=== PATIENT | male | born 1970 | race Caucasian/White ===

== ENCOUNTER 2020-01-19 23:31 | Inpatient (IN) | payer MEDICARE, SELFPAY ==
[2020-01-19 23:32] VITALS: BP 145/89; PULSE 99; RESP 25; TEMP 37.1; O2SAT 89; BMI 33.5
[2020-01-19 23:35] VITALS: BP 145/89; PULSE 97; RESP 22; O2SAT 89; O2SAT 93
--- NOTE | 2020-01-19 23:52 | EKG12_ITS ---
Test Reason : DYSRHYTHMIA Blood Pressure : / mmHG Vent. Rate : 089 BPM Atrial Rate : 089 BPM P-R Int : 148 ms QRS Dur : 080 ms QT Int : 356 ms P-R-T Axes : 014 -11 005 degrees QTc Int : 433 ms Normal sinus rhythm Minimal voltage criteria for LVH, may be normal variant Borderline ECG Confirmed by HARPER HILTON, LUANA ([id number]), website/blog editor OCTAVIA BONNER ([id number]) on 01/27/2020 12:56:37 P M Referred By: MARIANGEL Confirmed By:ROBIN SALEEM MD
[2020-01-19 23:58] LABS: Absolute Lymphocyte Count 0.65 X10^3/uL (0.83-4.51); Absolute Neutrophil Count 7.1 X10^3/uL (2.0-7.7); Basophil# 0.01 X10^3/uL; Basophil% 0.1 % (0-1); Hematocrit 40.2 % (40-54); Hemoglobin 14.2 g/dL (13.0-16.5); Lymphocyte # 0.65 X10^3/ul (4.0); Lymphocyte % 7.9 % (19-41); Mean Corp Hgb Conc 35.3 g/dL (32-36); Mean Platelet Vol. 9.1 fl (6.2-12.0); Monocyte# 0.41 X10^3/uL; NRBC Flagged by Analyzer 0 % (0-5); Neutrophil # 7.11 X10^3/uL (2.7-7.7); Neutrophil % 86.6 % (47-70); Platelet Count 281 K/mm3 (150-450); RBC Distribution Width CV 12.8 % (11.6-14.6); RBC Distribution Width SD 38.2 fl (35.1-43.9); White Blood Count 8.2 K/mm3 (4.4-11.0)
[2020-01-20] VITALS (18 sets, daily range): BP systolic 131–154; BP diastolic 74–97; PULSE 87–97; RESP 16–24; TEMP 37–38.4; O2SAT 88–99; BMI 32.7
--- NOTE | 2020-01-20 00:04 | RAD_ITS ---
STUDY: X-RAY CHEST REASON FOR EXAM: Male, 49 years old. Shortness of breath and cough. Tested for Covid January 18, 2020. TECHNIQUE: AP portable chest. COMPARISON: March 02, 2011. FINDINGS: Subtle bilateral midlung and right basilar opacities. No effusions. No pneumothorax. Normal size heart. Normal mediastinum and joe. Normal visualized pulmonary arteries. Normal visualized aortic arch and descending thoracic aorta. Normal visualized thoracic spine. Normal visualized ribs, clavicles, and shoulders. There is no demonstrated abnormality of the visualized soft tissue structures of the upper abdomen. RAD/Chest 1 View (Portable) IMPRESSION: Possible bilateral pneumonia. Consider correlation with CT chest. Electronically Signed: Lobo Odonnell MD at 0:25 EDT , Service support ,
--- NOTE | 2020-01-20 00:08 | ED.VIS.GEN ---
History of Present Illness Chief Complaint: Shortness of Breath Informant: Patient Narrative: 49-year-old male presenting with shortness of breath. He stated he started feeling ill exactly 7 days ago. He started being short of breath 3 days ago. He states that he was tested at home with his family on Friday but he does not have the results back for COVID?19. He states that now he feels significantly short of breath. On arrival he is hypoxic on room air. Dates he does not have any known medical problems. He is not having chest pain. No history of DVT/PE. Past Medical History - Allergies and Home Meds Allergies/Adverse Reactions: Allergies No Known Allergies Allergy (Verified 01/19/20 23:32) Past Medical History: None Surgical History: noncontributory Lives: With Family Smoking Status: Never smoker Alcohol: None Drugs: None - Family History Maternal Family History: Reports: Heart Disease Review of Systems General: Reports: Chills Eyes: Denies: Visual changes - bilaterally, Diplopia ENT: Denies: Rhinorrhea, Sore throat Cardiovascular: Denies: Chest pain, Palpitations Respiratory: Reports: Dyspnea, Cough, Dyspnea on exertion Gastrointestinal: Denies: Abdominal pain, Nausea, Vomiting, Diarrhea, Melena, Hematochezia Genitourinary: Denies: Dysuria, Hematuria, Frequency Musculoskeletal: Reports: Myalgias Skin: Denies: Rash, Wounds Neurological: Denies: Headache, Weakness, Numbness Physical Exam Vital Signs/Narrative: Vital Signs Temp Pulse Resp BP Pulse Ox 01/20/20 00:00 94 01/19/20 23:35 97 22 H 145/89 H 93 01/19/20 23:32 98.7 F 99 25 H 145/89 H 89 Inital Vital Signs reviewed: Yes General: Well nourished, No Acute Distress Head: Normocephalic, Atraumatic Eyes: Perrl, EOMI ENT: Moist mucous membranes. Negative for: No rhinorrhea, Nasal congestion Cardiovascular: Regular rate, Regular rhythm Respiratory: Decreased Air Movement Abdomen: Soft, Nontender Extremities: Nontender, No edema. Negative for: Calf Tenderness Skin: Normal color, No rash Neurological: Alert, Oriented x3 Psychological: Normal affect, Normal Mood Diagnostic/Tx/Re-eval Clinical Impression(s) from Imaging Studies Chest X-Ray 01/20/20 00:04 IMPRESSION: Possible bilateral pneumonia. Consider correlation with CT chest. Electronically Signed: Lobo Odonnell MD at 0:25 EDT , Service support , Chest CTA 01/20/20 00:54 IMPRESSION: Multifocal bilateral pneumonia to include viral pneumonia. No pulmonary embolus or thoracic aortic dissection. Enlarged right pericardial lymph node. Electronically Signed: Lobo Odonnell MD at 2:28 EDT , Service support , Laboratory Data 01/19/20 01/19/20 01/20/20 23:36 23:36 00:35 WBC 8.2 RBC 4.90 Hgb 14.2 Hct 40.2 MCV 82.0 MCH 29.0 MCHC 35.3 RDW Std Deviation 38.2 RDW Coeff of Doug 12.8 Plt Count 281 MPV 9.1 Immature Gran % (Auto) 0.400 Neut % (Auto) 86.6 H Lymph % (Auto) 7.9 L [place] % (Auto) 5.0 Eos % (Auto) 0.0 Baso % (Auto) 0.1 Absolute Neuts (auto) 7.1 Absolute Lymphs (auto) 0.65 L Nucleated RBC % 0 D-Dimer Quant (PE/DVT) 0.50 H Sodium 134 L Potassium 4.1 Chloride 100 Carbon Dioxide 27.0 Anion Gap 7 BUN 19 H Creatinine 0.89 Estim Creat Clear Calc 93.87 Est GFR (MDRD) Af Amer 117 Est GFR (MDRD) Non-Af 97 BUN/Creatinine Ratio 21.3 H Glucose 133 H Calcium 9.1 Troponin I < 0.015 Procalcitonin COVID-19 (NEFTALY) 01/20/20 01/20/20 00:52 01:32 WBC RBC Hgb Hct MCV MCH MCHC RDW Std Deviation RDW Coeff of Doug Plt Count MPV Immature Gran % (Auto) Neut % (Auto) Lymph % (Auto) [place] % (Auto) Eos % (Auto) Baso % (Auto) Absolute Neuts (auto) Absolute Lymphs (auto) Nucleated RBC % D-Dimer Quant (PE/DVT) Sodium Potassium Chloride Carbon Dioxide Anion Gap BUN Creatinine Estim Creat Clear Calc Est GFR (MDRD) Af Amer Est GFR (MDRD) Non-Af BUN/Creatinine Ratio Glucose Calcium Troponin I Procalcitonin 0.05 COVID-19 (NEFTALY) Detected - Rhythm Strip Rhythm Strip: Sinus Rhythm Rate: 89 - EKG Initial EKG Interpretation: Sinus Rhythm, No Acute Injury Pattern - Medical Decision Making Patient presents with symptoms of COVID?19 and he was tested on Friday but feels significantly short of breath. Ambulatory pulse ox done at the bedside shows that he drops to 84% on room air. He feels significantly short of breath when marching in place. Patient began coughing. Otherwise the patient has stable vital signs. He is alert and awake. EKG is sinus rhythm without signs of ischemia. Patient's chest x-ray shows bilateral pneumonia and his lab work is consistent with a viral pneumonia. D-dimer was elevated so CTA was performed which showed the focal bilateral pneumonia. Patient tested positive for COVID?19 patient's hypoxia he will be admitted to the hospital. Transferred to the floor in stable condition. Impression: 1. COVID?19 pneumonia 2. Hypoxia ED Disposition - Plan for ED Patient: Disposition: Acute Care Hospital [facility]
[2020-01-20 00:13] LABS: Anion Gap 7 (5-15); BUN 19 mg/dL (7-18); BUN/Creat Ratio 21.3 RATIO (10-20); Calcium,Total 9.1 mg/dL (8.5-10.1); Chloride 100 mmol/L (98-107); Creatinine, Serum 0.89 mg/dL (0.70-1.30); EST Glomerular Filtration Rate 97 mL/min (>60); Est Glom Filt Rate - Afr Amer 117 mL/min (>60); Estimated Creatinine Clearance 93.87 ml/min; Glucose 133 mg/dL (74-106); Potassium 4.1 mmol/L (3.5-5.1); Sodium Level 134 mmol/L (136-145)
--- NOTE | 2020-01-20 00:54 | CT_ITS ---
STUDY: CTA CHEST REASON FOR EXAM: Male, 49 years old. Hypoxia, shortness of breath. RADIATION DOSAGE (If Supplied By Facility): CTDIvol = ( 14.95 ) mGy, DLP = ( 506.19 ) mGycm TECHNIQUE: The examination was performed with the intravenous administration of IV 100mL Isovue-370. Post-processing of the angiographic images was performed, with multiplanar reformation and 3D reconstruction. Individualized dose optimization techniques were used for this CT. COMPARISON: Chest x-ray January 20, 2020. FINDINGS: Normal enhancement of the main pulmonary artery and right and left pulmonary arteries. Normal enhancement of the bilateral peripheral pulmonary arteries. There is no demonstrated pulmonary embolism. Normal thoracic aorta and visualized great vessels. There is no demonstrated aortic dissection. Normal heart and pericardium. 2.7 x 2.3 cm soft tissue nodule adjacent to the right heart border suggestive of an enlarged pericardial lymph node, axial image 79.. Normal mediastinum. Normal hilar regions. Normal visualized trachea and bronchi. Focal areas of consolidation posterior aspect of the right upper lobe, posterior aspect of the right middle lobe and lingular segment and posterior aspect of the lower lobes right greater than left. There are groundglass opacities , the majority of which are peripheral in the upper lobes, right middle lobe lingular segment and left lower lobe. No pleural effusions. No pneumothorax. Normal chest wall structures. Mild degenerative changes of the thoracic spine. Normal visualized upper abdomen. CT/CTA Chest W/WO Contrast IMPRESSION: Multifocal bilateral pneumonia to include viral pneumonia. No pulmonary embolus or thoracic aortic dissection. Enlarged right pericardial lymph node. Electronically Signed: Lobo Odonnell MD at 2:28 EDT , Service support ,
[2020-01-20 02:12] LABS: Procalcitonin 0.05 ng/mL (0.00-0.09)
--- NOTE | 2020-01-20 02:54 | HP.PCM_ITS ---
History of Present Illness Date of Admission: 01/20/20 Chief Complaint: Shortness of breath The patient is a 49 year old M with a PMH as below who presents to the hospital with shortness of breath. He started feeling sick about a week ago and his whole family started feeling sick at around the same time and they were tested on Friday for possible COVID, however he does not have any results back. He was started on Plaquenil, Singulair, and prednisone 2 days ago when he was tested for COVID. He started feeling short of breath about 3 days ago and states that the reason why he came into the hospital today was he felt little bit better this morning but then throughout the day began to worsen again. He has had a COVID test obtained here as he is going to be admitted. He was hypoxic on room air down to about 84% and needs about 2 L nasal cannula to maintain his oxygen saturations. Past Medical History Allergies No Known Allergies Allergy (Verified 01/19/20 23:32) Home Medications: Ambulatory Orders Medication Instructions Recorded Hydroxychloroquine [Plaquenil] 400 mg PO DAILY 01/19/20 Montelukast [Singulair] 10 mg PO DAILY 01/19/20 Prednisone 30 mg PO BID 01/19/20 Surgical History: appendectomy Lives: With Family Smoking Status: Never smoker Tobacco Use: Non-smoker Alcohol: None Drugs: None - *Family History Maternal History Items: Heart Disease Review of Systems Constitutional: Reports: Chills, Fever, Fatigue. Denies: Weight Change HEENT: Denies: Head Aches, Sinus Congestion, Sinus Drainage Cardiovascular: Denies: Chest Pain, Palpitations Respiratory: Reports: Cough, Shortness of Breath. Denies: Shortness of breath at rest, Sputum production Gastrointestinal: Denies: Abdominal Pain, Nausea, Vomiting Genitourinary: Denies: Dysuria Musculoskeletal: Denies: Joint Pain, Joint Tenderness Skin: Denies: Rash, Wounds Neurological: Denies: Numbness, Tingling, Focal weakness Psychiatric: Denies: Anxiety, Depression, Homicidal Ideations, Suicidal Ideations Hematologic/ Lymphatic: Denies: Easy Bruising, Easy Bleeding VTE Information - Inpt Only VTE Present on Admission: No - Physical Exam Vitals/I&O's: Vital Signs Temp Pulse Resp BP Pulse Ox 99.6 F H 87 20 H 140/82 H 94 01/20/20 02:16 01/20/20 02:16 01/20/20 02:16 01/20/20 02:16 01/20/20 02:16 Oxygen Flow Rate (L/min) 2 Oxygen Delivery Method Nasal Cannula Weight: 214 lb 4.629 oz Body Mass Index (BMI) 33.5 General: Alert, Oriented x3, Cooperative, No apparent distress HEENT: Atraumatic, PERRLA, EOMI, Normocephalic Oral: Moist Mucosa Neck: Supple, No JVD Lungs: No rhonchi, No wheeze, No rales, Diminished Cardiovascular: Regular rate, Regular Rhythm, Normal S1, Normal S2, No murmurs Abdomen: Soft, Non Tender, Non-Distended, No Hepato-splenomegaly Extremities: No edema, Capillary Refill Less than 3 Seconds Skin: No rashes, No breakdown Neurological: Neuro grossly intact, Sensory exam intact to light touch and pain Psych/Mental Status: Normal Affect, Appropriate Laboratory Results 01/19/20 23:36: WBC 8.2, RBC 4.90, Hgb 14.2, Hct 40.2, MCV 82.0, MCH 29.0, MCHC 35.3, RDW Std Deviation 38.2, RDW Coeff of Doug 12.8, Plt Count 281, MPV 9.1, Immature Gran % (Auto) 0.400, Neut % (Auto) 86.6 H, Lymph % (Auto) 7.9 L, [place] % (Auto) 5.0, Eos % (Auto) 0.0, Baso % (Auto) 0.1, Absolute Neuts (auto) 7.1, Absolute Lymphs (auto) 0.65 L, Nucleated RBC % 0 01/19/20 23:36: Sodium 134 L, Potassium 4.1, Chloride 100, Carbon Dioxide 27.0, Anion Gap 7, BUN 19 H, Creatinine 0.89, Estim Creat Clear Calc 93.87, Est GFR (MDRD) Af Amer 117, Est GFR (MDRD) Non-Af 97, BUN/Creatinine Ratio 21.3 H, Glucose 133 H, Calcium 9.1, Troponin I < 0.015 01/20/20 00:35: D-Dimer Quant (PE/DVT) 0.50 H 01/20/20 00:52: COVID-19 (NEFTALY) Pending 01/20/20 01:32: Procalcitonin 0.05 Assessment/Plan 1. Acute hypoxic respiratory failure secondary to viral pneumonia due to COVID- 19 -COVID test is positive, will admit him to the cohort unit under isolation precautions. He states that he thinks he got COVID from his daughter who had gone to spiritism -We will place him on Decadron, d-dimer was 0.5 and pro calcitonin was normal -No leukocytosis, but he does have neutrophilia and lymphopenia -We will also obtain an ambulatory pulse ox as he will likely need oxygen on discharge DVT: Lovenox Inpatient E&M: [id number] Init Hosp L2
[2020-01-20 03:19] LABS: Probe Check PASS; Specimen Processing Control PASS
[2020-01-20 05:43] LABS: Absolute Lymphocyte Count 1.11 X10^3/uL (0.83-4.51); Absolute Neutrophil Count 6.6 X10^3/uL (2.0-7.7); Basophil# 0.01 X10^3/uL; Basophil% 0.1 % (0-1); Eosinophil# 0.13 X10^3/uL; Eosinophils% 1.6 % (0-5); Hematocrit 40.4 % (40-54); Hemoglobin 13.8 g/dL (13.0-16.5); Lymphocyte # 1.11 X10^3/ul (4.0); Lymphocyte % 13.3 % (19-41); Mean Corp Hgb Conc 34.2 g/dL (32-36); Mean Corpuscular Hgb 28.5 pg (27.0-32.0); Mean Corpuscular Volume 83.3 fL (80-94); Mean Platelet Vol. 8.6 fl (6.2-12.0); Monocyte# 0.46 X10^3/uL; Monocyte% 5.5 % (0-10); NRBC Flagged by Analyzer 0 % (0-5); Neutrophil # 6.61 X10^3/uL (2.7-7.7); POSITIVE MORPHOLOGY YES; Platelet Count 284 K/mm3 (150-450); RBC Distribution Width CV 12.9 % (11.6-14.6); Red Blood Count 4.85 M/mm3 (4.6-6.2); White Blood Count 8.4 K/mm3 (4.4-11.0)
[2020-01-20 05:45] LABS: Differential Indicated SCAN CRITERIA MET
[2020-01-20 06:03] LABS: Anion Gap 7 (5-15); BUN 18 mg/dL (7-18); BUN/Creat Ratio 19.5 RATIO (10-20); Calcium,Total 9.1 mg/dL (8.5-10.1); Chloride 97 mmol/L (98-107); Creatinine, Serum 0.92 mg/dL (0.70-1.30); EST Glomerular Filtration Rate 93 mL/min (>60); Est Glom Filt Rate - Afr Amer 112 mL/min (>60); Estimated Creatinine Clearance 90.81 ml/min; Glucose 109 mg/dL (74-106); Potassium 3.9 mmol/L (3.5-5.1); Sodium Level 134 mmol/L (136-145)
[2020-01-20 06:14] LABS: Differential Comment SCANNED
[2020-01-20] MEDS: dexAMETHasone 4 MG Tablet 6 MG PO (09:16)
[2020-01-20] MEDS: Enoxaparin 40 MG/0.4 ML Syringe SC (09:17)
--- NOTE | 2020-01-20 10:21 | CON.PCM_ITS ---
Problem List (1) COVID-19 Status: Acute Reason for Consult: covid Consulted by: Dr. Espinal History of Present Illness: The patient is a 49 year old M who presented to ED yesterday with one week of aches, feeling hot, loss of taste/smell, diarrhea. Daughter and got sick before he did. Over past 3 days, progressive dry cough and dyspnea. Got tested 2 days ago and was started on prednisone and hydroxychloroquine. Sx worsened, came to ED, sats less than 90. Admitted on O2 and decadron. Feeling about the same today. Taste/smell returning. Family is improving at home. Full ROS performed and neg except as noted above. - Medical History Surgical History: reviewed Allergies/Adverse Reactions: Allergies No Known Allergies Allergy (Verified 01/19/20 23:32) Home Medications: Ambulatory Orders Medication Instructions Recorded Hydroxychloroquine [Plaquenil] 400 mg PO DAILY 01/19/20 Montelukast [Singulair] 10 mg PO DAILY 01/19/20 Prednisone 30 mg PO BID 01/19/20 - Social History Tobacco Use: non-smoker Vital Signs Temp Pulse Resp BP Pulse Ox 100.4 F H 91 16 143/86 H 92 01/20/20 09:20 01/20/20 09:20 01/20/20 09:20 01/20/20 09:20 01/20/20 09:25 Oxygen Flow Rate (L/min) 2 Oxygen Delivery Method Nasal Cannula Weight: 94.801 kg Body Mass Index (BMI) 32.7 Laboratory Tests Past 24 Hrs 01/19/20 01/19/20 01/20/20 23:36 23:36 00:35 WBC 8.2 RBC 4.90 Hgb 14.2 Hct 40.2 MCV 82.0 MCH 29.0 MCHC 35.3 RDW Std Deviation 38.2 RDW Coeff of Doug 12.8 Plt Count 281 MPV 9.1 Immature Gran % (Auto) 0.400 Neut % (Auto) 86.6 H Lymph % (Auto) 7.9 L [place] % (Auto) 5.0 Eos % (Auto) 0.0 Baso % (Auto) 0.1 Absolute Neuts (auto) 7.1 Absolute Lymphs (auto) 0.65 L Nucleated RBC % 0 Differential Comment D-Dimer Quant (PE/DVT) 0.50 H Sodium 134 L Potassium 4.1 Chloride 100 Carbon Dioxide 27.0 Anion Gap 7 BUN 19 H Creatinine 0.89 Estim Creat Clear Calc 93.87 Est GFR (MDRD) Af Amer 117 Est GFR (MDRD) Non-Af 97 BUN/Creatinine Ratio 21.3 H Glucose 133 H Calcium 9.1 Troponin I < 0.015 Procalcitonin COVID-19 (NEFTALY) Blood Type 01/20/20 01/20/20 01/20/20 00:52 01:32 05:30 WBC 8.4 RBC 4.85 Hgb 13.8 Hct 40.4 MCV 83.3 MCH 28.5 MCHC 34.2 RDW Std Deviation 39.0 RDW Coeff of Doug 12.9 Plt Count 284 MPV 8.6 Immature Gran % (Auto) 0.500 Neut % (Auto) 79.0 H Lymph % (Auto) 13.3 L [place] % (Auto) 5.5 Eos % (Auto) 1.6 Baso % (Auto) 0.1 Absolute Neuts (auto) 6.6 Absolute Lymphs (auto) 1.11 Nucleated RBC % 0 Differential Comment SCANNED D-Dimer Quant (PE/DVT) Sodium Potassium Chloride Carbon Dioxide Anion Gap BUN Creatinine Estim Creat Clear Calc Est GFR (MDRD) Af Amer Est GFR (MDRD) Non-Af BUN/Creatinine Ratio Glucose Calcium Troponin I Procalcitonin 0.05 COVID-19 (NEFTALY) Detected Blood Type 01/20/20 01/20/20 05:30 08:45 WBC RBC Hgb Hct MCV MCH MCHC RDW Std Deviation RDW Coeff of Doug Plt Count MPV Immature Gran % (Auto) Neut % (Auto) Lymph % (Auto) [place] % (Auto) Eos % (Auto) Baso % (Auto) Absolute Neuts (auto) Absolute Lymphs (auto) Nucleated RBC % Differential Comment D-Dimer Quant (PE/DVT) Sodium 134 L Potassium 3.9 Chloride 97 L Carbon Dioxide 30.0 Anion Gap 7 BUN 18 Creatinine 0.92 Estim Creat Clear Calc 90.81 Est GFR (MDRD) Af Amer 112 Est GFR (MDRD) Non-Af 93 BUN/Creatinine Ratio 19.5 Glucose 109 H Calcium 9.1 Troponin I Procalcitonin COVID-19 (NEFTALY) Blood Type Pending - Other Studies Radiology: [] reviewed Other Studies: [] Route of nutrition/ use of supplements: [] Nutritional Intake: [] IV Site: [] Williamson Catheter: [] - Physical Exam General: Alert, Oriented x3, Cooperative, No apparent distress HEENT: Atraumatic, PERRLA, EOMI Neck: Supple, No Nodes Lungs: Diminished Cardiovascular: Regular rate, Regular Rhythm, No murmurs Abdomen: Soft, Non Tender, Non-Distended Extremities: No edema Skin: No rashes IV Site: Peripheral, without redness Musculoskeletal: No Tenderness to Palpation of Joints or Extremities Neurological: Cranial nerves II-XII grossly intact - Assessment/Plan Antibiotics: [] Assessment/Plan: [] acute hypoxic resp failure due to covid 19 - on decadron. D-dimer 0.5. No chest pain, no sputum. Fever here to 101.1. PCT 0.05. Counseled him and his re risks and benefits of convalescent plasma and remdesivir, and they consented to the treatments. Thank you, will follow, d/w Dr. Espinal. Patient or caregiver was given a copy of the Remdesivir Fact Sheet for Patients and Parents/Caregivers. The following information was communicated to the patient or caregiver: Remdesivir is not an FDA approved drug. The FDA has authorized the emergency use of Remdesivir. The patient had the option to refuse or accept treatment with Remdesivir. The patient was informed that the number of people treated with Remdesivir is small at this time. The potential benefits and potential risks of Remdesivir are not fully known. Potential benefits of Remdesivir include a shorter time to recovery of COVID-19 infection. Potential risks or side effects of Remdesivir include sweating, shivering, nausea and vomiting or low blood pressure related to a reaction to the medication infusion and increases in liver enzymes. No drugs are approved by the FDA to treat COVID-19 at this time. The patient (or appointed nutrition representative) stated understanding of information communicated and wished to proceed with Remdesivir treatment.
--- NOTE | 2020-01-20 10:41 | NURSING ---
left message for that i would try to call back again early afternoon or before if able.
--- NOTE | 2020-01-20 10:56 | NURSING ---
returned call, updated on pt. assured her we would call if any changes were to occur
[2020-01-20 11:01] LABS: AST(SGOT) 31 U/L (15-37); Alanine Aminotransfer ALT/SGPT 45 U/L (16-61); Albumin, Serum 3.6 g/dL (3.2-5.0); Alkaline Phosphatase 57 U/L (45-117); Bilirubin, Direct 0.31 mg/dL (0.00-0.30); Globulin 4.6 g/dL (2.2-4.2); Protein, Total 8.2 g/dL (6.4-8.2)
--- NOTE | 2020-01-20 15:19 | CASEMGMT ---
RN CM called patient in room for initial transition planning/care coordination assessment. RN CM introduced self and role at [facility]. Patient alert and oriented. Patient willing to participate in assessment and is able to answer all questions appropriately. Care providers, pharmacy, and demographics verified. Patient wishes to discharge home, denies need for home health at this time, will monitor for home oxygen. Patient states he has no further needs or concerns at this time. CM to follow for discharge planning needs that may arise. PCP: Bennett [phone] Specialists: none Preferred Pharmacy: [facility] in [place] Insurance: self pay then submits to [employer] Prescription Benefit: none Living Will/HPOA: yes, Kaykay Azar LNOK: Living Arrangements: Patient lives with in a single story home with 4 steps and railing to enter the home. Patient states he is independent at home and has electricity Transportation: Driving service DME/HHC: Patient denies DME or previous HHC. Disposition Plan: Patient to discharge home with family support and follow-up plans in place. Will monitor for home oxygen. Susanne FRANCO, RN, CM
--- NOTE | 2020-01-20 17:56 | PCM.HOSP.N ---
Hospitalist Note Patient was seen and examined briefly today, he is stable on 2 L of oxygen, he has vigorous coughing but is not bringing up any sputum. I talked to the patient at length, he understands he has a viral pneumonia. Patient does not complain of any chest pain, he had complaints of shortness of breath after he ambulated to the bathroom today. Had infectious diseases see the patient today, they added medications to his regimen.
[2020-01-20] MEDS: Acetaminophen 325 MG Tablet 650 MG PO (21:35)
[2020-01-20] MEDS: MELATONIN 3 MG TABLET PO (21:36)
[2020-01-20] MEDS: 0.9% Saline Lock 10 ML Syringe IV (22:50)
[2020-01-21] VITALS (8 sets, daily range): BP systolic 148–167; BP diastolic 71–90; PULSE 85–92; RESP 16–20; TEMP 36.9–37.7; O2SAT 92–95
[2020-01-21] MEDS: 0.9% Saline Lock 10 ML Syringe IV ×3 (01:21→21:15)
[2020-01-21] MEDS: Acetaminophen 325 MG Tablet 650 MG PO (05:16)
[2020-01-21 05:34] LABS: Hematocrit 37.8 % (40-54); Hemoglobin 13.1 g/dL (13.0-16.5); Mean Corp Hgb Conc 34.7 g/dL (32-36); Mean Corpuscular Hgb 29.4 pg (27.0-32.0); Mean Corpuscular Volume 84.8 fL (80-94); Mean Platelet Vol. 8.8 fl (6.2-12.0); Platelet Count 325 K/mm3 (150-450); RBC Distribution Width SD 40.3 fl (35.1-43.9); Red Blood Count 4.46 M/mm3 (4.6-6.2); White Blood Count 8.8 K/mm3 (4.4-11.0)
[2020-01-21 05:49] LABS: ALB/GLOB Ratio 0.8 RATIO (0.9-2.4); AST(SGOT) 35 U/L (15-37); Alanine Aminotransfer ALT/SGPT 47 U/L (16-61); Albumin, Serum 3.4 g/dL (3.2-5.0); Alkaline Phosphatase 59 U/L (45-117); Anion Gap 7 (5-15); BUN 23 mg/dL (7-18); BUN/Creat Ratio 25.8 RATIO (10-20); Calcium,Total 9.1 mg/dL (8.5-10.1); Chloride 98 mmol/L (98-107); Creatinine, Serum 0.89 mg/dL (0.70-1.30); EST Glomerular Filtration Rate 96 mL/min (>60); Est Glom Filt Rate - Afr Amer 117 mL/min (>60); Estimated Creatinine Clearance 93.87 ml/min; Globulin 4.5 g/dL (2.2-4.2); Glucose 97 mg/dL (74-106); Potassium 3.9 mmol/L (3.5-5.1); Protein, Total 7.9 g/dL (6.4-8.2); Sodium Level 134 mmol/L (136-145)
[2020-01-21] MEDS: dexAMETHasone 4 MG Tablet 6 MG PO (11:07)
--- NOTE | 2020-01-21 12:52 | CASEMGMT ---
MICHAEL QUESADA NOTE: Pt may need oxygen at discharge. Call placed to pt at this time. He is aware he may need O2 @ home and denies having any preference of DME company. He states he has CHM coverage but does not know if it covers for Oxygen. He was made aware approx cost of oxygen for one month through [employer] is approx $158. Pt states this is affordable for him. Pt states he does have electricity @ home as well. Green sheet placed on chart w/instructions on Home oxygen set up if pt qualifies for O2 @ discharge. Rosangela VASQUEZN MICHAEL CM
--- NOTE | 2020-01-21 14:02 | PCM.PN.ID ---
Patient Problems: Active and Suspected Problems COVID-19 (Acute) Subjective: Still with cough, dyspnea, no fever. No n/v/d. - Physical Exam Vitals/I&O's: Vital Signs Temp Pulse Resp BP Pulse Ox 98.4 F 91 18 149/88 H 95 01/21/20 11:00 01/21/20 11:00 01/21/20 11:00 01/21/20 11:00 01/21/20 11:00 Oxygen Flow Rate (L/min) 2 Oxygen Delivery Method Nasal Cannula Weight: 94.801 kg Body Mass Index (BMI) 32.7 Intake and Output for Last 24 Hours 01/19/20 01/20/20 01/21/20 23:59 23:59 23:59 Intake Total 250 / 250 1850 / 1850 Output Total 250 / 250 875 / 875 Balance 0 / 0 975 / 975 General: Alert, Cooperative Lungs: Diminished Cardiovascular: Regular rate, Regular Rhythm Abdomen: Soft, Non Tender, Non-Distended Skin: No rashes Laboratory Results 01/21/20 05:25: WBC 8.8, RBC 4.46 L, Hgb 13.1, Hct 37.8 L, MCV 84.8, MCH 29.4, MCHC 34.7, RDW Std Deviation 40.3, RDW Coeff of Doug 13.0, Plt Count 325, MPV 8.8 01/21/20 05:25: Sodium 134 L, Potassium 3.9, Chloride 98, Carbon Dioxide 29.0, Anion Gap 7, BUN 23 H, Creatinine 0.89, Estim Creat Clear Calc 93.87, Est GFR (MDRD) Af Amer 117, Est GFR (MDRD) Non-Af 96, BUN/Creatinine Ratio 25.8 H, Glucose 97, Calcium 9.1, Total Bilirubin 0.90, AST 35, ALT 47, Alkaline Phosphatase 59, Total Protein 7.9, Albumin 3.4, Globulin 4.5 H, Albumin/Globulin Ratio 0.8 L Current Medications Acetaminophen (Tylenol) 650 mg PO Q6H PRN PRN PRN Reason: Pain Score 1-10/Temp > 100.7 F Last Admin: 01/21/20 05:16 Dose: 650 mg Documented by: Dexamethasone (Decadron) 6 mg PO DAILY@0800 PRETTY Last Admin: 01/21/20 11:07 Dose: 6 mg Documented by: Enoxaparin Sodium (Lovenox) 40 mg SC DAILY [facility] Last Admin: 01/20/20 09:17 Dose: 40 mg Documented by: Sodium Chloride () 250 mls @ 15 mls/hr IV .[id number] PRN PRN Reason: Saline Flush Sodium Chloride () 250 mls @ 15 mls/hr IV .[id number] PRN PRN Reason: Additional IVPB Infusion Remdesivir (Investigational) (100 mg/ Sodium Chloride) 250 mls @ 125 mls/hr IV DAILY [facility]; Protocol Stop: 01/24/20 11:59 Sodium Chloride () 250 mls @ 15 mls/hr IV .[id number] PRN PRN Reason: Saline Flush Sodium Chloride () 250 mls @ 15 mls/hr IV .[id number] PRN PRN Reason: Additional IVPB Infusion Melatonin (Melatonin) 3 mg PO QHS PRN PRN PRN Reason: INSOMNIA Last Admin: 01/20/20 21:36 Dose: 3 mg Documented by: Ondansetron HCl (Zofran) 4 mg IV Q8H PRN PRN PRN Reason: NAUSEA/VOMITING Sodium Chloride () 10 - 40 ml IV UD PRN PRN Reason: SALINE FLUSH Last Admin: 01/21/20 11:07 Dose: 10 ml Documented by: Medical Necessity - Tobacco Use Smoking Status: Never smoker Tobacco Use: Non-smoker Route of nutrition/ use of supplements: [] Nutritional Intake: [] IV Site: [] Williamson Catheter: [] - Assessment/Plan Antibiotics: [] Assessment/Plan: [] acute hypoxic resp failure due to covid 19 - on decadron for 10 day course. D-dimer 0.5. No chest pain, no sputum. No further fever, cont 5 day course of remdesivir. If able to be discharged prior to completing course, ok to stop remdesivir and decadron early. Will follow
[2020-01-21] MEDS: Enoxaparin 40 MG/0.4 ML Syringe SC (17:22)
--- NOTE | 2020-01-21 18:09 | PCM.PROGNOTE ---
Patient Problems: Active and Suspected Problems COVID-19 (Acute) Subjective: Patient was seen and examined today, he is still requiring 2 L of oxygen most of the time to maintain his pulse ox, at rest the patient appears comfortable but the patient states that when he uses the restroom and walks to the restroom he becomes short of breath. Patient is still coughing, he is receiving Remdesivir from infectious diseases. - Physical Exam Vitals/I&O's: Vital Signs Temp Pulse Resp BP Pulse Ox 98.4 F 91 18 149/88 H 95 01/21/20 11:00 01/21/20 11:00 01/21/20 11:00 01/21/20 11:00 01/21/20 11:00 Oxygen Flow Rate (L/min) 2 Oxygen Delivery Method Nasal Cannula Weight: 94.801 kg Body Mass Index (BMI) 32.7 Intake and Output for Last 24 Hours 01/19/20 01/20/20 01/21/20 23:59 23:59 23:59 Intake Total 250 / 250 2100 / 2100 Output Total 250 / 250 875 / 875 Balance 0 / 0 1225 / 1225 General: Alert, Oriented x3, Cooperative, No apparent distress, Well developed HEENT: Atraumatic, PERRLA, EOMI, Normocephalic Oral: Moist Mucosa Neck: Supple, No JVD, Trachea Midline, Thyroid Normal Size and Texture Lungs: Clear to auscultation, Normal air movement, No rhonchi, No wheeze, No rales Cardiovascular: Regular rate, Regular Rhythm, Normal S1, Normal S2, No murmurs, PMI Normal, No rub noted, No Gallop Abdomen: Bowel Sounds Present, Soft, Non Tender, Non-Distended Extremities: No clubbing, No cyanosis, No edema, Capillary Refill Less than 3 Seconds Skin: No rashes, No breakdown Musculoskeletal: No Tenderness to Palpation of Joints or Extremities Neurological: Cranial nerves II-XII grossly intact, Neuro grossly intact, Sensory exam intact to light touch and pain, Coordination normal Psych/Mental Status: Normal Affect, Appropriate, Alert and oriented to time, place, person, mood and affect Laboratory Results 01/21/20 05:25: WBC 8.8, RBC 4.46 L, Hgb 13.1, Hct 37.8 L, MCV 84.8, MCH 29.4, MCHC 34.7, RDW Std Deviation 40.3, RDW Coeff of Doug 13.0, Plt Count 325, MPV 8.8 01/21/20 05:25: Sodium 134 L, Potassium 3.9, Chloride 98, Carbon Dioxide 29.0, Anion Gap 7, BUN 23 H, Creatinine 0.89, Estim Creat Clear Calc 93.87, Est GFR (MDRD) Af Amer 117, Est GFR (MDRD) Non-Af 96, BUN/Creatinine Ratio 25.8 H, Glucose 97, Calcium 9.1, Total Bilirubin 0.90, AST 35, ALT 47, Alkaline Phosphatase 59, Total Protein 7.9, Albumin 3.4, Globulin 4.5 H, Albumin/Globulin Ratio 0.8 L Current Medications Acetaminophen (Tylenol) 650 mg PO Q6H PRN PRN PRN Reason: Pain Score 1-10/Temp > 100.7 F Last Admin: 01/21/20 05:16 Dose: 650 mg Documented by: Dexamethasone (Decadron) 6 mg PO DAILY@0800 [facility] Last Admin: 01/21/20 11:07 Dose: 6 mg Documented by: Enoxaparin Sodium (Lovenox) 40 mg SC BID [facility] Last Admin: 01/21/20 17:22 Dose: 40 mg Documented by: Sodium Chloride () 250 mls @ 15 mls/hr IV .[id number] PRN PRN Reason: Saline Flush Sodium Chloride () 250 mls @ 15 mls/hr IV .[id number] PRN PRN Reason: Additional IVPB Infusion Remdesivir (Investigational) (100 mg/ Sodium Chloride) 250 mls @ 125 mls/hr IV DAILY [facility]; Protocol Stop: 01/24/20 11:59 Last Infusion: 01/21/20 16:53 Dose: Infused Documented by: Sodium Chloride () 250 mls @ 15 mls/hr IV .[id number] PRN PRN Reason: Saline Flush Sodium Chloride () 250 mls @ 15 mls/hr IV .[id number] PRN PRN Reason: Additional IVPB Infusion Melatonin (Melatonin) 3 mg PO QHS PRN PRN PRN Reason: INSOMNIA Last Admin: 01/20/20 21:36 Dose: 3 mg Documented by: Ondansetron HCl (Zofran) 4 mg IV Q8H PRN PRN PRN Reason: NAUSEA/VOMITING Sodium Chloride () 10 - 40 ml IV UD PRN PRN Reason: SALINE FLUSH Last Admin: 01/21/20 11:07 Dose: 10 ml Documented by: Medical Necessity - Tobacco Use Smoking Status: Never smoker Tobacco Use: Non-smoker Assessment/Plan All Active Problems COVID-19 (Acute) #1 acute COVID-19 infection with pneumonia-continue treatment per infectious diseases, patient remains medically stable at this time #2 hypoxia secondary to #1-try to wean oxygen as tolerated Inpatient E&M: 35969 Subs Hosp L2
[2020-01-22 02:15] VITALS: BP 148/91; PULSE 81; RESP 16; TEMP 37.1; O2SAT 94
[2020-01-22 05:24] LABS: Hematocrit 38.7 % (40-54); Hemoglobin 13.2 g/dL (13.0-16.5); Mean Corp Hgb Conc 34.1 g/dL (32-36); Mean Corpuscular Hgb 28.6 pg (27.0-32.0); Mean Corpuscular Volume 83.9 fL (80-94); Mean Platelet Vol. 8.7 fl (6.2-12.0); Platelet Count 384 K/mm3 (150-450); RBC Distribution Width CV 13.2 % (11.6-14.6); RBC Distribution Width SD 40.4 fl (35.1-43.9); Red Blood Count 4.61 M/mm3 (4.6-6.2); White Blood Count 8.8 K/mm3 (4.4-11.0)
[2020-01-22 05:43] LABS: ALB/GLOB Ratio 0.7 RATIO (0.9-2.4); AST(SGOT) 32 U/L (15-37); Alanine Aminotransfer ALT/SGPT 50 U/L (16-61); Albumin, Serum 3.2 g/dL (3.2-5.0); Alkaline Phosphatase 59 U/L (45-117); Anion Gap 6 (5-15); BUN 25 mg/dL (7-18); BUN/Creat Ratio 36.6 RATIO (10-20); Calcium,Total 9.2 mg/dL (8.5-10.1); Chloride 100 mmol/L (98-107); Creatinine, Serum 0.68 mg/dL (0.70-1.30); EST Glomerular Filtration Rate 131 mL/min (>60); Est Glom Filt Rate - Afr Amer 159 mL/min (>60); Estimated Creatinine Clearance 122.86 ml/min; Globulin 4.7 g/dL (2.2-4.2); Glucose 108 mg/dL (74-106); Potassium 4.1 mmol/L (3.5-5.1); Protein, Total 7.9 g/dL (6.4-8.2); Sodium Level 134 mmol/L (136-145)
[2020-01-22] MEDS: Acetaminophen 325 MG Tablet 650 MG PO (06:20)
[2020-01-22 07:00] VITALS: O2SAT 94
[2020-01-22 07:38] VITALS: BP 130/89; PULSE 81; RESP 18; TEMP 37.2; O2SAT 94
[2020-01-22] MEDS: dexAMETHasone 4 MG Tablet 6 MG PO (10:32)
[2020-01-22] MEDS: Enoxaparin 40 MG/0.4 ML Syringe SC ×2 (10:32→21:00)
[2020-01-22] MEDS: 0.9% Saline Lock 10 ML Syringe IV (10:33)
--- NOTE | 2020-01-22 12:07 | PN_ITS ---
Patient Problems: Active and Suspected Problems COVID-19 (Acute) Subjective: Patient was seen and examined today, I talked with him as well as his by phone today, he is requiring more oxygen at this time but is resting comfortably, he asked about something for postnasal drainage and I had Robitussin-DM added onto his meds. Patient does not complain of any chest pain or severe dyspnea today. - Physical Exam Vitals/I&O's: Vital Signs Temp Pulse Resp BP Pulse Ox 98.9 F 81 18 130/89 H 94 01/22/20 07:38 01/22/20 07:38 01/22/20 07:38 01/22/20 07:38 01/22/20 07:38 Oxygen Flow Rate (L/min) 4 Oxygen Delivery Method Nasal Cannula Weight: 94.801 kg Body Mass Index (BMI) 32.7 Intake and Output for Last 24 Hours 01/20/20 01/21/20 01/22/20 23:59 23:59 23:59 Intake Total 250 / 250 3450 / 3450 Output Total 250 / 250 1825 / 1825 550 / 550 Balance 0 / 0 1625 / 1625 -550 / -550 General: Alert, Oriented x3, Cooperative, No apparent distress, Well developed, Well nourished HEENT: Atraumatic, PERRLA, EOMI, Normocephalic Oral: Moist Mucosa Neck: Supple, Trachea Midline, Thyroid Normal Size and Texture Lungs: Clear to auscultation, Normal air movement, No rhonchi, No wheeze, No rales Cardiovascular: Regular rate, Regular Rhythm, Normal S1, Normal S2, No murmurs, PMI Normal, No rub noted, No Gallop Abdomen: Bowel Sounds Present, Soft, Non Tender, Non-Distended Extremities: No clubbing, No cyanosis, No edema, Capillary Refill Less than 3 Seconds Skin: No rashes, No breakdown Musculoskeletal: No Tenderness to Palpation of Joints or Extremities Neurological: Cranial nerves II-XII grossly intact, Neuro grossly intact, Sensory exam intact to light touch and pain, Coordination normal Psych/Mental Status: Normal Affect, Appropriate, Alert and oriented to time, place, person, mood and affect Laboratory Results 01/22/20 05:15: WBC 8.8, RBC 4.61, Hgb 13.2, Hct 38.7 L, MCV 83.9, MCH 28.6, MCHC 34.1, RDW Std Deviation 40.4, RDW Coeff of Doug 13.2, Plt Count 384, MPV 8.7 01/22/20 05:15: Sodium 134 L, Potassium 4.1, Chloride 100, Carbon Dioxide 28.0, Anion Gap 6, BUN 25 H, Creatinine 0.68 L, Estim Creat Clear Calc 122.86, Est GFR (MDRD) Af Amer 159, Est GFR (MDRD) Non-Af 131, BUN/Creatinine Ratio 36.6 H, Glucose 108 H, Calcium 9.2, Total Bilirubin 0.80, AST 32, ALT 50, Alkaline Phosphatase 59, Total Protein 7.9, Albumin 3.2, Globulin 4.7 H, Albumin/Globulin Ratio 0.7 L Current Medications Acetaminophen (Tylenol) 650 mg PO Q6H PRN PRN PRN Reason: Pain Score 1-10/Temp > 100.7 F Last Admin: 01/22/20 06:20 Dose: 650 mg Documented by: Dexamethasone (Decadron) 6 mg PO DAILY@0800 [facility] Last Admin: 01/22/20 10:32 Dose: 6 mg Documented by: Enoxaparin Sodium (Lovenox) 40 mg SC BID [facility] Last Admin: 01/22/20 10:32 Dose: 40 mg Documented by: Sodium Chloride () 250 mls @ 15 mls/hr IV .[id number] PRN PRN Reason: Saline Flush Sodium Chloride () 250 mls @ 15 mls/hr IV .[id number] PRN PRN Reason: Additional IVPB Infusion Remdesivir (Investigational) (100 mg/ Sodium Chloride) 250 mls @ 125 mls/hr IV DAILY [facility]; Protocol Stop: 01/24/20 11:59 Last Admin: 01/22/20 10:32 Dose: 125 mls/hr Documented by: Sodium Chloride () 250 mls @ 15 mls/hr IV .[id number] PRN PRN Reason: Saline Flush Sodium Chloride () 250 mls @ 15 mls/hr IV .[id number] PRN PRN Reason: Additional IVPB Infusion Melatonin (Melatonin) 3 mg PO QHS PRN PRN PRN Reason: INSOMNIA Last Admin: 01/20/20 21:36 Dose: 3 mg Documented by: Ondansetron HCl (Zofran) 4 mg IV Q8H PRN PRN PRN Reason: NAUSEA/VOMITING Sodium Chloride () 10 - 40 ml IV UD PRN PRN Reason: SALINE FLUSH Last Admin: 01/22/20 10:33 Dose: 10 ml Documented by: Medical Necessity - Tobacco Use Smoking Status: Never smoker Tobacco Use: Non-smoker Assessment/Plan All Active Problems COVID-19 (Acute) #1 acute COVID-19 infection with pneumonia-continue treatment per infectious diseases, patient remains medically stable at this time #2 hypoxia secondary to #1-try to wean oxygen as tolerated, patient is now on 4 L #3 postnasal drainage-probably secondary to oxygen [id number] was added to his formulary Inpatient E&M: 00607 Subs Hosp L2
[2020-01-22] MEDS: guaiFENesin Dm 10 ML UDC PO ×3 (13:25→22:51)
[2020-01-22 13:28] VITALS: BP 129/89; PULSE 82; RESP 18; TEMP 36.9; O2SAT 93
[2020-01-22 16:23] VITALS: BP 149/79; PULSE 83; RESP 18; TEMP 36.8; O2SAT 93
[2020-01-22] MEDS: MELATONIN 3 MG TABLET PO (20:56)
[2020-01-22 21:00] VITALS: BP 150/93; PULSE 87; RESP 22; TEMP 36.7; O2SAT 95
[2020-01-23] VITALS (9 sets, daily range): BP systolic 125–153; BP diastolic 78–94; PULSE 72–88; RESP 16–20; TEMP 36.7–36.9; O2SAT 94–97
[2020-01-23] MEDS: guaiFENesin Dm 10 ML UDC PO ×4 (04:31→22:01)
[2020-01-23] MEDS: 0.9% Saline Lock 10 ML Syringe IV ×2 (04:49→22:04)
[2020-01-23 05:36] LABS: Hematocrit 40.3 % (40-54); Hemoglobin 13.8 g/dL (13.0-16.5); Mean Corp Hgb Conc 34.2 g/dL (32-36); Mean Corpuscular Hgb 28.8 pg (27.0-32.0); Platelet Count 509 K/mm3 (150-450); RBC Distribution Width CV 13.2 % (11.6-14.6); RBC Distribution Width SD 40.4 fl (35.1-43.9); White Blood Count 7.3 K/mm3 (4.4-11.0)
[2020-01-23 05:52] LABS: ALB/GLOB Ratio 0.7 RATIO (0.9-2.4); AST(SGOT) 28 U/L (15-37); Alanine Aminotransfer ALT/SGPT 50 U/L (16-61); Albumin, Serum 3.2 g/dL (3.2-5.0); Alkaline Phosphatase 61 U/L (45-117); Anion Gap 6 (5-15); BUN 22 mg/dL (7-18); BUN/Creat Ratio 32.4 RATIO (10-20); Calcium,Total 9.2 mg/dL (8.5-10.1); Chloride 100 mmol/L (98-107); Creatinine, Serum 0.68 mg/dL (0.70-1.30); EST Glomerular Filtration Rate 132 mL/min (>60); Est Glom Filt Rate - Afr Amer 160 mL/min (>60); Estimated Creatinine Clearance 122.86 ml/min; Globulin 4.8 g/dL (2.2-4.2); Glucose 104 mg/dL (74-106); Potassium 4.1 mmol/L (3.5-5.1); Sodium Level 132 mmol/L (136-145)
[2020-01-23] MEDS: dexAMETHasone 4 MG Tablet 6 MG PO (09:36)
[2020-01-23] MEDS: Enoxaparin 40 MG/0.4 ML Syringe SC ×2 (09:36→22:01)
--- NOTE | 2020-01-23 12:39 | PCM.PROGNOTE ---
Patient Problems: Active and Suspected Problems COVID-19 (Acute) Subjective: Patient was seen and examined today, he is currently still on 4 L of oxygen via nasal cannula, patient still appears to be weak, he is going to try to get up in a chair more today and see how he can tolerate it. He is willing to go home on supplemental oxygen if he needs it, his last dose of Remdisivir is tomorrow. Patient denies any chest pain or fever or chills. - Physical Exam Vitals/I&O's: Vital Signs Temp Pulse Resp BP Pulse Ox 98.1 F 88 18 146/88 H 94 01/23/20 09:36 01/23/20 09:36 01/23/20 09:36 01/23/20 09:36 01/23/20 09:36 Oxygen Flow Rate (L/min) 4 Oxygen Delivery Method Nasal Cannula Weight: 94.801 kg Body Mass Index (BMI) 32.7 Intake and Output for Last 24 Hours 01/21/20 01/22/20 01/23/20 23:59 23:59 23:59 Intake Total 3450 / 3450 1200 / 1200 650 / 650 Output Total 1825 / 1825 1850 / 1850 1325 / 1325 Balance 1625 / 1625 -650 / -650 -675 / -675 General: Alert, Oriented x3, Cooperative, No apparent distress, Well developed, Well nourished HEENT: Atraumatic, PERRLA, EOMI, Normocephalic Oral: Moist Mucosa Neck: Supple, Trachea Midline, Thyroid Normal Size and Texture Lungs: Clear to auscultation, Normal air movement, No rhonchi, No wheeze, No rales Cardiovascular: Regular rate, Regular Rhythm, Normal S1, Normal S2, No murmurs, PMI Normal, No rub noted, No Gallop Abdomen: Bowel Sounds Present, Soft, Non Tender, Non-Distended Extremities: No edema, Capillary Refill Less than 3 Seconds Skin: No rashes, No breakdown Musculoskeletal: No Tenderness to Palpation of Joints or Extremities Neurological: Cranial nerves II-XII grossly intact, Neuro grossly intact, Sensory exam intact to light touch and pain, Coordination normal Psych/Mental Status: Normal Affect, Appropriate, Alert and oriented to time, place, person, mood and affect Laboratory Results 01/23/20 04:45: WBC 7.3, RBC 4.80, Hgb 13.8, Hct 40.3, MCV 84.0, MCH 28.8, MCHC 34.2, RDW Std Deviation 40.4, RDW Coeff of Doug 13.2, Plt Count 509 H, MPV 9.0 01/23/20 04:45: Sodium 132 L, Potassium 4.1, Chloride 100, Carbon Dioxide 26.0, Anion Gap 6, BUN 22 H, Creatinine 0.68 L, Estim Creat Clear Calc 122.86, Est GFR (MDRD) Af Amer 160, Est GFR (MDRD) Non-Af 132, BUN/Creatinine Ratio 32.4 H, Glucose 104, Calcium 9.2, Total Bilirubin 0.90, AST 28, ALT 50, Alkaline Phosphatase 61, Total Protein 8.0, Albumin 3.2, Globulin 4.8 H, Albumin/Globulin Ratio 0.7 L Current Medications Acetaminophen (Tylenol) 650 mg PO Q6H PRN PRN PRN Reason: Pain Score 1-10/Temp > 100.7 F Last Admin: 01/22/20 06:20 Dose: 650 mg Documented by: Dexamethasone (Decadron) 6 mg PO DAILY@0800 [facility] Last Admin: 01/23/20 09:36 Dose: 6 mg Documented by: Enoxaparin Sodium (Lovenox) 40 mg SC BID [facility] Last Admin: 01/23/20 09:36 Dose: 40 mg Documented by: Guaifenesin (Robitussin Dm) 10 ml PO Q4H PRN PRN PRN Reason: COUGH/SINUS DRNG Last Admin: 01/23/20 10:31 Dose: 10 ml Documented by: Sodium Chloride () 250 mls @ 15 mls/hr IV .[id number] PRN PRN Reason: Saline Flush Sodium Chloride () 250 mls @ 15 mls/hr IV .[id number] PRN PRN Reason: Additional IVPB Infusion Remdesivir (Investigational) (100 mg/ Sodium Chloride) 250 mls @ 125 mls/hr IV DAILY [facility]; Protocol Stop: 01/24/20 11:59 Last Admin: 01/23/20 10:30 Dose: 125 mls/hr Documented by: Sodium Chloride () 250 mls @ 15 mls/hr IV .[id number] PRN PRN Reason: Saline Flush Sodium Chloride () 250 mls @ 15 mls/hr IV .[id number] PRN PRN Reason: Additional IVPB Infusion Melatonin (Melatonin) 3 mg PO QHS PRN PRN PRN Reason: INSOMNIA Last Admin: 01/22/20 20:56 Dose: 3 mg Documented by: Ondansetron HCl (Zofran) 4 mg IV Q8H PRN PRN PRN Reason: NAUSEA/VOMITING Sodium Chloride () 10 - 40 ml IV UD PRN PRN Reason: SALINE FLUSH Last Admin: 01/23/20 04:49 Dose: 10 ml Documented by: Medical Necessity - Tobacco Use Smoking Status: Never smoker Tobacco Use: Non-smoker Assessment/Plan All Active Problems COVID-19 (Acute) #1 acute COVID-19 infection with pneumonia-continue treatment per infectious diseases, patient remains medically stable at this time, patient finishes his course of Remdisivir tomorrow #2 hypoxia secondary to #1-try to wean oxygen as tolerated, patient is now on 4 L #3 postnasal drainage-probably secondary to oxygen administration Inpatient E&M: 05871 Subs Hosp L2
[2020-01-23] MEDS: MELATONIN 3 MG TABLET PO (22:01)
[2020-01-24] VITALS (12 sets, daily range): BP systolic 116–148; BP diastolic 82–93; PULSE 72–88; RESP 18–24; TEMP 36.1–37.4; O2SAT 92–98
[2020-01-24 04:39] LABS: Hematocrit 40.9 % (40-54); Mean Corp Hgb Conc 34.2 g/dL (32-36); Mean Corpuscular Hgb 28.5 pg (27.0-32.0); Mean Corpuscular Volume 83.3 fL (80-94); Mean Platelet Vol. 8.6 fl (6.2-12.0); Platelet Count 582 K/mm3 (150-450); RBC Distribution Width CV 13.1 % (11.6-14.6); RBC Distribution Width SD 39.8 fl (35.1-43.9); Red Blood Count 4.91 M/mm3 (4.6-6.2)
[2020-01-24 04:54] LABS: ALB/GLOB Ratio 0.7 RATIO (0.9-2.4); AST(SGOT) 25 U/L (15-37); Alanine Aminotransfer ALT/SGPT 57 U/L (16-61); Albumin, Serum 3.2 g/dL (3.2-5.0); Alkaline Phosphatase 60 U/L (45-117); Anion Gap 6 (5-15); BUN 25 mg/dL (7-18); BUN/Creat Ratio 32.9 RATIO (10-20); Calcium,Total 9.3 mg/dL (8.5-10.1); Chloride 101 mmol/L (98-107); Creatinine, Serum 0.76 mg/dL (0.70-1.30); EST Glomerular Filtration Rate 116 mL/min (>60); Est Glom Filt Rate - Afr Amer 140 mL/min (>60); Estimated Creatinine Clearance 109.93 ml/min; Globulin 4.7 g/dL (2.2-4.2); Glucose 101 mg/dL (74-106); Potassium 3.9 mmol/L (3.5-5.1); Protein, Total 7.9 g/dL (6.4-8.2); Sodium Level 133 mmol/L (136-145)
[2020-01-24] MEDS: guaiFENesin Dm 10 ML UDC PO (06:06)
--- NOTE | 2020-01-24 08:47 | PN_ITS ---
Patient Problems: Active and Suspected Problems COVID-19 (Acute) Subjective: Patient was seen and examined today, he still complains of significant weakness when getting up to ambulate. Patient is now on 3 L nasal cannula oxygen. He gets his last dose of Remdisivir today. Patient is still having cough. Objective: General: Alert, Oriented x3, Cooperative, No apparent distress, Well developed, Well nourished HEENT: Atraumatic, PERRLA, EOMI, Normocephalic Oral: Moist Mucosa Neck: Supple, Trachea Midline, Thyroid Normal Size and Texture Lungs: Clear to auscultation, Normal air movement, No rhonchi, No wheeze, No rales Cardiovascular: Regular rate, Regular Rhythm, Normal S1, Normal S2, No murmurs, PMI Normal, No rub noted, No Gallop Abdomen: Bowel Sounds Present, Soft, Non Tender, Non-Distended Extremities: No edema, Capillary Refill Less than 3 Seconds Skin: No rashes, No breakdown Musculoskeletal: No Tenderness to Palpation of Joints or Extremities Neurological: Cranial nerves II-XII grossly intact, Neuro grossly intact, Sensory exam intact to light touch and pain, Coordination normal Psych/Mental Status: Normal Affect, Appropriate, Alert and oriented to time, place, person, mood and affect - Physical Exam Vitals/I&O's: Vital Signs Temp Pulse Resp BP Pulse Ox 98.0 F 72 18 123/84 H 95 01/24/20 04:23 01/24/20 06:54 01/24/20 04:23 01/24/20 04:23 01/24/20 06:54 Oxygen Flow Rate (L/min) 3 Oxygen Delivery Method Nasal Cannula Weight: 94.801 kg Body Mass Index (BMI) 32.7 Intake and Output for Last 24 Hours 01/22/20 01/23/20 01/24/20 23:59 23:59 23:59 Intake Total 1200 / 1200 1400 / 1400 800 / 800 Output Total 1850 / 1850 2825 / 2825 200 / 200 Balance -650 / -650 -1425 / -1425 600 / 600 Laboratory Results 01/24/20 04:25: WBC 7.0, RBC 4.91, Hgb 14.0, Hct 40.9, MCV 83.3, MCH 28.5, MCHC 34.2, RDW Std Deviation 39.8, RDW Coeff of Doug 13.1, Plt Count 582 H, MPV 8.6 01/24/20 04:25: Sodium 133 L, Potassium 3.9, Chloride 101, Carbon Dioxide 26.0, Anion Gap 6, BUN 25 H, Creatinine 0.76, Estim Creat Clear Calc 109.93, Est GFR (MDRD) Af Amer 140, Est GFR (MDRD) Non-Af 116, BUN/Creatinine Ratio 32.9 H, Glucose 101, Calcium 9.3, Total Bilirubin 0.90, AST 25, ALT 57, Alkaline Phosphatase 60, Total Protein 7.9, Albumin 3.2, Globulin 4.7 H, Albumin/Globulin Ratio 0.7 L Current Medications Acetaminophen (Tylenol) 650 mg PO Q6H PRN PRN PRN Reason: Pain Score 1-10/Temp > 100.7 F Last Admin: 01/22/20 06:20 Dose: 650 mg Documented by: Dexamethasone (Decadron) 6 mg PO DAILY@0800 [facility] Last Admin: 01/23/20 09:36 Dose: 6 mg Documented by: Enoxaparin Sodium (Lovenox) 40 mg SC BID [facility] Last Admin: 01/23/20 22:01 Dose: 40 mg Documented by: Guaifenesin (Robitussin Dm) 10 ml PO Q4H PRN PRN PRN Reason: COUGH/SINUS DRNG Last Admin: 01/24/20 06:06 Dose: 10 ml Documented by: Sodium Chloride () 250 mls @ 15 mls/hr IV .[id number] PRN PRN Reason: Saline Flush Sodium Chloride () 250 mls @ 15 mls/hr IV .[id number] PRN PRN Reason: Additional IVPB Infusion Remdesivir (Investigational) (100 mg/ Sodium Chloride) 250 mls @ 125 mls/hr IV DAILY [facility]; Protocol Stop: 01/24/20 11:59 Last Infusion: 01/23/20 12:30 Dose: Infused Documented by: Sodium Chloride () 250 mls @ 15 mls/hr IV .[id number] PRN PRN Reason: Saline Flush Sodium Chloride () 250 mls @ 15 mls/hr IV .[id number] PRN PRN Reason: Additional IVPB Infusion Melatonin (Melatonin) 3 mg PO QHS PRN PRN PRN Reason: INSOMNIA Last Admin: 01/23/20 22:01 Dose: 3 mg Documented by: Ondansetron HCl (Zofran) 4 mg IV Q8H PRN PRN PRN Reason: NAUSEA/VOMITING Sodium Chloride () 10 - 40 ml IV UD PRN PRN Reason: SALINE FLUSH Last Admin: 01/23/20 22:04 Dose: 10 ml Documented by: Medical Necessity - Tobacco Use Smoking Status: Never smoker Tobacco Use: Non-smoker Assessment/Plan All Active Problems COVID-19 (Acute) #1 acute COVID-19 infection with pneumonia-continue treatment per infectious diseases, patient remains medically stable at this time, patient finishes his course of Remdisivir today. #2 hypoxia secondary to #1-try to wean oxygen as tolerated, patient is now on 3 L #3 postnasal drainage-probably secondary to oxygen administration Inpatient E&M: 35529 Subs Hosp L2
[2020-01-24] MEDS: dexAMETHasone 4 MG Tablet 6 MG PO (09:07)
[2020-01-24] MEDS: Enoxaparin 40 MG/0.4 ML Syringe SC ×2 (09:07→20:13)
[2020-01-24] MEDS: 0.9% Saline Lock 10 ML Syringe IV (09:08)
--- NOTE | 2020-01-24 14:16 | PN.ID_ITS ---
Patient Problems: Active and Suspected Problems COVID-19 (Acute) Subjective: Feeling better, no fever, no n/v/d. Cough improved. - Physical Exam Vitals/I&O's: Vital Signs Temp Pulse Resp BP Pulse Ox 97.9 F 82 24 H 128/85 H 94 01/24/20 12:00 01/24/20 12:00 01/24/20 12:00 01/24/20 12:00 01/24/20 12:00 Oxygen Flow Rate (L/min) 4 Oxygen Delivery Method Nasal Cannula Weight: 94.801 kg Body Mass Index (BMI) 32.7 Intake and Output for Last 24 Hours 01/22/20 01/23/20 01/24/20 23:59 23:59 23:59 Intake Total 1200 / 1200 1400 / 1400 1750 / 1750 Output Total 1850 / 1850 2825 / 2825 650 / 650 Balance -650 / -650 -1425 / -1425 1100 / 1100 General: Alert, Cooperative, No apparent distress Lungs: Diminished Cardiovascular: Regular rate, Regular Rhythm Abdomen: Soft, Non Tender, Non-Distended Skin: No rashes Laboratory Results 01/24/20 04:25: WBC 7.0, RBC 4.91, Hgb 14.0, Hct 40.9, MCV 83.3, MCH 28.5, MCHC 34.2, RDW Std Deviation 39.8, RDW Coeff of Doug 13.1, Plt Count 582 H, MPV 8.6 01/24/20 04:25: Sodium 133 L, Potassium 3.9, Chloride 101, Carbon Dioxide 26.0, Anion Gap 6, BUN 25 H, Creatinine 0.76, Estim Creat Clear Calc 109.93, Est GFR (MDRD) Af Amer 140, Est GFR (MDRD) Non-Af 116, BUN/Creatinine Ratio 32.9 H, Glucose 101, Calcium 9.3, Total Bilirubin 0.90, AST 25, ALT 57, Alkaline Phosphatase 60, Total Protein 7.9, Albumin 3.2, Globulin 4.7 H, Albumin/Globulin Ratio 0.7 L Current Medications Acetaminophen (Tylenol) 650 mg PO Q6H PRN PRN PRN Reason: Pain Score 1-10/Temp > 100.7 F Last Admin: 01/22/20 06:20 Dose: 650 mg Documented by: Dexamethasone (Decadron) 6 mg PO DAILY@0800 [facility] Last Admin: 01/24/20 09:07 Dose: 6 mg Documented by: Enoxaparin Sodium (Lovenox) 40 mg SC BID [facility] Last Admin: 01/24/20 09:07 Dose: 40 mg Documented by: Guaifenesin (Robitussin Dm) 10 ml PO Q4H PRN PRN PRN Reason: COUGH/SINUS DRNG Last Admin: 01/24/20 06:06 Dose: 10 ml Documented by: Sodium Chloride () 250 mls @ 15 mls/hr IV .[id number] PRN PRN Reason: Saline Flush Sodium Chloride () 250 mls @ 15 mls/hr IV .[id number] PRN PRN Reason: Additional IVPB Infusion Sodium Chloride () 250 mls @ 15 mls/hr IV .[id number] PRN PRN Reason: Saline Flush Sodium Chloride () 250 mls @ 15 mls/hr IV .[id number] PRN PRN Reason: Additional IVPB Infusion Melatonin (Melatonin) 3 mg PO QHS PRN PRN PRN Reason: INSOMNIA Last Admin: 01/23/20 22:01 Dose: 3 mg Documented by: Ondansetron HCl (Zofran) 4 mg IV Q8H PRN PRN PRN Reason: NAUSEA/VOMITING Sodium Chloride () 10 - 40 ml IV UD PRN PRN Reason: SALINE FLUSH Last Admin: 01/24/20 09:08 Dose: 10 ml Documented by: Medical Necessity - Tobacco Use Smoking Status: Never smoker Tobacco Use: Non-smoker Route of nutrition/ use of supplements: [] Nutritional Intake: [] IV Site: [] Williamson Catheter: [] - Assessment/Plan Antibiotics: [] Assessment/Plan: [] acute hypoxic resp failure due to covid 19 - on decadron for 10 day course. D- dimer 0.5. No chest pain, no sputum. No further fever, completing 5 day course of remdesivir. Slowly improving. Will follow
[2020-01-25] VITALS (13 sets, daily range): BP systolic 113–150; BP diastolic 79–87; PULSE 72–104; RESP 16–26; TEMP 36.3–37.2; O2SAT 86–98
[2020-01-25 04:33] LABS: Hematocrit 40.6 % (40-54); Hemoglobin 13.9 g/dL (13.0-16.5); Mean Corp Hgb Conc 34.2 g/dL (32-36); Mean Corpuscular Hgb 28.7 pg (27.0-32.0); Mean Corpuscular Volume 83.7 fL (80-94); Mean Platelet Vol. 8.5 fl (6.2-12.0); Platelet Count 621 K/mm3 (150-450); RBC Distribution Width CV 13.2 % (11.6-14.6); RBC Distribution Width SD 39.8 fl (35.1-43.9); Red Blood Count 4.85 M/mm3 (4.6-6.2); White Blood Count 7.2 K/mm3 (4.4-11.0)
[2020-01-25 04:48] LABS: ALB/GLOB Ratio 0.7 RATIO (0.9-2.4); AST(SGOT) 17 U/L (15-37); Alanine Aminotransfer ALT/SGPT 46 U/L (16-61); Albumin, Serum 3.2 g/dL (3.2-5.0); Alkaline Phosphatase 60 U/L (45-117); Anion Gap 7 (5-15); BUN 23 mg/dL (7-18); BUN/Creat Ratio 30.8 RATIO (10-20); Calcium,Total 8.8 mg/dL (8.5-10.1); Chloride 101 mmol/L (98-107); Creatinine, Serum 0.75 mg/dL (0.70-1.30); EST Glomerular Filtration Rate 118 mL/min (>60); Est Glom Filt Rate - Afr Amer 143 mL/min (>60); Estimated Creatinine Clearance 111.39 ml/min; Globulin 4.5 g/dL (2.2-4.2); Glucose 108 mg/dL (74-106); Potassium 3.9 mmol/L (3.5-5.1); Protein, Total 7.7 g/dL (6.4-8.2); Sodium Level 134 mmol/L (136-145)
[2020-01-25] MEDS: dexAMETHasone 4 MG Tablet 6 MG PO (08:10)
--- NOTE | 2020-01-25 08:19 | RAD_ITS ---
STUDY: X-RAY CHEST REASON FOR EXAM: Male, 49 years old. COVID +, PT HAS FELT BAD FOR 13 DAYS, STARTING TO FEEL BETTER TECHNIQUE: Single AP portable view of the chest. COMPARISON: Comparison is made with prior study dated 01/20/2020. FINDINGS: At this time, there is progressive infiltrate in the left lower lobe and left midlung. Stable mild increased markings at the right lung base. There is no demonstrated pleural abnormality. Normal size heart. Normal mediastinum and joe. Normal visualized pulmonary arteries. Normal visualized aortic arch and descending thoracic aorta. Normal visualized thoracic spine. Normal visualized ribs, clavicles, and shoulders. There is no demonstrated abnormality of the visualized soft tissue structures of the upper abdomen. RAD/Chest 1 View (Portable) IMPRESSION: Progressive infiltrate in the left lower lobe and left midlung. Stable increased markings at the right lung base. Electronically Signed: Rufus Hoffman, at 10:18 EDT , Service support ,
--- NOTE | 2020-01-25 10:36 | CASEMGMT ---
RN CM Note: participated in ICU interdisciplinary rounds. Patient continues to desat O2 on ambulation. No discharge planned for today. Will need home oxygen testing day of dc for O2 needs at rest and with ambulation. Per physician, if tolerates 5-6L NC on ambulation, will be able to dc. -DC PLAN: home with self pay oxygen through [employer]. William VASQUEZN RN ACM
--- NOTE | 2020-01-25 16:09 | PCM.PROGNOTE ---
Patient Problems: Active and Suspected Problems COVID-19 (Acute) Subjective: Patient was seen and examined today, he still requiring nasal cannula oxygen to maintain his O2 sat. Patient continues to complain of generalized weakness, he denies any chills fever or increasing shortness of breath. Objective: General: Alert, Oriented x3, Cooperative, No apparent distress, Well developed, Well nourished HEENT: Atraumatic, PERRLA, EOMI, Normocephalic Oral: Moist Mucosa Neck: Supple, Trachea Midline, Thyroid Normal Size and Texture Lungs: Clear to auscultation, Normal air movement, No rhonchi, No wheeze, No rales Cardiovascular: Regular rate, Regular Rhythm, Normal S1, Normal S2, No murmurs, PMI Normal, No rub noted, No Gallop Abdomen: Bowel Sounds Present, Soft, Non Tender, Non-Distended Extremities: No edema, Capillary Refill Less than 3 Seconds Skin: No rashes, No breakdown Musculoskeletal: No Tenderness to Palpation of Joints or Extremities Neurological: Cranial nerves II-XII grossly intact, Neuro grossly intact, Sensory exam intact to light touch and pain, Coordination normal Psych/Mental Status: Normal Affect, Appropriate, Alert and oriented to time, place, person, mood and affect - Physical Exam Vitals/I&O's: Vital Signs Temp Pulse Resp BP Pulse Ox 97.8 F 88 24 H 135/85 H 97 01/25/20 15:30 01/25/20 15:30 01/25/20 15:30 01/25/20 15:30 01/25/20 15:30 Oxygen Flow Rate (L/min) 4 Oxygen Delivery Method Nasal Cannula Weight: 94.801 kg Body Mass Index (BMI) 32.7 Intake and Output for Last 24 Hours 01/23/20 01/24/20 01/25/20 23:59 23:59 23:59 Intake Total 1400 / 1400 2860 / 3180 1200 / 1200 Output Total 2825 / 2825 1525 / 1975 1175 / 1175 Balance -1425 / -1425 1335 / 1205 Laboratory Results 01/25/20 03:50: WBC 7.2, RBC 4.85, Hgb 13.9, Hct 40.6, MCV 83.7, MCH 28.7, MCHC 34.2, RDW Std Deviation 39.8, RDW Coeff of Doug 13.2, Plt Count 621 H, MPV 8.5 01/25/20 03:50: Sodium 134 L, Potassium 3.9, Chloride 101, Carbon Dioxide 26.0, Anion Gap 7, BUN 23 H, Creatinine 0.75, Estim Creat Clear Calc 111.39, Est GFR (MDRD) Af Amer 143, Est GFR (MDRD) Non-Af 118, BUN/Creatinine Ratio 30.8 H, Glucose 108 H, Calcium 8.8, Total Bilirubin 0.80, AST 17, ALT 46, Alkaline Phosphatase 60, Total Protein 7.7, Albumin 3.2, Globulin 4.5 H, Albumin/Globulin Ratio 0.7 L Current Medications Acetaminophen (Tylenol) 650 mg PO Q6H PRN PRN PRN Reason: Pain Score 1-10/Temp > 100.7 F Last Admin: 01/22/20 06:20 Dose: 650 mg Documented by: Albuterol Sulfate (Ventolin Aerosols) 2.5 mg INHALATION Q6HWA.RT [facility] Dexamethasone (Decadron) 6 mg PO DAILY@0800 [facility] Last Admin: 01/25/20 08:10 Dose: 6 mg Documented by: Enoxaparin Sodium (Lovenox) 40 mg SC BID [facility] Last Admin: 01/25/20 15:00 Dose: Not Given Documented by: Guaifenesin (Robitussin Dm) 10 ml PO Q4H PRN PRN PRN Reason: COUGH/SINUS DRNG Last Admin: 01/24/20 06:06 Dose: 10 ml Documented by: Sodium Chloride () 250 mls @ 15 mls/hr IV .[id number] PRN PRN Reason: Saline Flush Sodium Chloride () 250 mls @ 15 mls/hr IV .[id number] PRN PRN Reason: Additional IVPB Infusion Sodium Chloride () 250 mls @ 15 mls/hr IV .[id number] PRN PRN Reason: Saline Flush Sodium Chloride () 250 mls @ 15 mls/hr IV .[id number] PRN PRN Reason: Additional IVPB Infusion Melatonin (Melatonin) 3 mg PO QHS PRN PRN PRN Reason: INSOMNIA Last Admin: 01/23/20 22:01 Dose: 3 mg Documented by: Ondansetron HCl (Zofran) 4 mg IV Q8H PRN PRN PRN Reason: NAUSEA/VOMITING Sodium Chloride () 10 - 40 ml IV UD PRN PRN Reason: SALINE FLUSH Last Admin: 01/24/20 09:08 Dose: 10 ml Documented by: Medical Necessity - Tobacco Use Smoking Status: Never smoker Tobacco Use: Non-smoker Assessment/Plan All Active Problems COVID-19 (Acute) #1 acute COVID-19 infection with pneumonia-continue treatment per infectious diseases, patient remains medically stable at this time, I will add aerosol treatments of the patient's medical regimen to see if this helps with the hypoxia, he is being seen by physical therapy, chest x-ray today showed progressive infiltrate in the left lower lobe and left midlung as compared with the prior study on 01/20/2020. Although these infiltrates look different from his previous chest x-ray, I am not overly worried about these infiltrates. #2 hypoxia secondary to #1-try to wean oxygen as tolerated, patient is now on 3 L #3 postnasal drainage-probably secondary to oxygen administration Inpatient E&M: 58752 [facility] Hosp L2
[2020-01-25] MEDS: Albuterol 2.5 MG/3 ML VIAL.NEB. INHALATION (18:57)
[2020-01-25] MEDS: Enoxaparin 40 MG/0.4 ML Syringe SC (21:20)
[2020-01-26] VITALS (9 sets, daily range): BP systolic 114–129; BP diastolic 77–89; PULSE 69–96; RESP 14–28; TEMP 36.3–37.1; O2SAT 87–96
[2020-01-26] MEDS: Albuterol 2.5 MG/3 ML VIAL.NEB. INHALATION ×2 (06:53→13:15)
[2020-01-26] MEDS: Enoxaparin 40 MG/0.4 ML Syringe SC (09:19)
[2020-01-26] MEDS: dexAMETHasone 4 MG Tablet 6 MG PO (09:19)
[2020-01-26] MEDS: 0.9% Saline Lock 10 ML Syringe IV (09:19)
--- NOTE | 2020-01-26 12:49 | PN.ID_ITS ---
Patient Problems: Active and Suspected Problems COVID-19 (Acute) Subjective: Feeling much better, home today planned, no fever, still some cough. - Physical Exam Vitals/I&O's: Vital Signs Temp Pulse Resp BP Pulse Ox 98.7 F 89 18 114/89 H 93 01/26/20 09:20 01/26/20 09:20 01/26/20 09:20 01/26/20 09:20 01/26/20 09:20 Oxygen Flow Rate (L/min) 1 Oxygen Delivery Method Nasal Cannula Weight: 94.801 kg Body Mass Index (BMI) 32.7 Intake and Output for Last 24 Hours 01/24/20 01/25/20 01/26/20 23:59 23:59 23:59 Intake Total 2860 / 3180 1740 / 1740 Output Total 1524 / 1974 625 / 625 Balance 1335 / 1205 -285 / -285 -625 / -625 General: Alert, Cooperative, No apparent distress Lungs: Clear to auscultation, Normal air movement, Diminished Cardiovascular: Regular rate, Regular Rhythm Abdomen: Soft, Non Tender, Non-Distended Skin: No rashes Current Medications Acetaminophen (Tylenol) 650 mg PO Q6H PRN PRN PRN Reason: Pain Score 1-10/Temp > 100.7 F Last Admin: 01/22/20 06:20 Dose: 650 mg Documented by: Albuterol Sulfate (Ventolin Aerosols) 2.5 mg INHALATION Q6HWA.RT [facility] Last Admin: 01/26/20 06:53 Dose: 2.5 mg Documented by: Dexamethasone (Decadron) 6 mg PO DAILY@0800 [facility] Last Admin: 01/26/20 09:19 Dose: 6 mg Documented by: Enoxaparin Sodium (Lovenox) 40 mg SC BID [facility] Last Admin: 01/26/20 09:19 Dose: 40 mg Documented by: Guaifenesin (Robitussin Dm) 10 ml PO Q4H PRN PRN PRN Reason: COUGH/SINUS DRNG Last Admin: 01/24/20 06:06 Dose: 10 ml Documented by: Sodium Chloride () 250 mls @ 15 mls/hr IV .[id number] PRN PRN Reason: Saline Flush Sodium Chloride () 250 mls @ 15 mls/hr IV .[id number] PRN PRN Reason: Additional IVPB Infusion Sodium Chloride () 250 mls @ 15 mls/hr IV .[id number] PRN PRN Reason: Saline Flush Sodium Chloride () 250 mls @ 15 mls/hr IV .[id number] PRN PRN Reason: Additional IVPB Infusion Melatonin (Melatonin) 3 mg PO QHS PRN PRN PRN Reason: INSOMNIA Last Admin: 01/23/20 22:01 Dose: 3 mg Documented by: Ondansetron HCl (Zofran) 4 mg IV Q8H PRN PRN PRN Reason: NAUSEA/VOMITING Sodium Chloride () 10 - 40 ml IV UD PRN PRN Reason: SALINE FLUSH Last Admin: 01/26/20 09:19 Dose: 10 ml Documented by: Medical Necessity - Tobacco Use Smoking Status: Never smoker Tobacco Use: Non-smoker Route of nutrition/ use of supplements: [] Nutritional Intake: [] IV Site: [] Williamson Catheter: [] - Assessment/Plan Antibiotics: [] Assessment/Plan: [] acute hypoxic resp failure due to covid 19 - on decadron for 10 day course. D- dimer 0.5. No chest pain, no sputum. No further fever, completed 5 day course of remdesivir. Much improved, home today. Day 14 since symptoms started, so no need for further quarantine. Family at home has all recovered. Will follow as needed
--- NOTE | 2020-01-26 13:36 | CASEMGMT ---
RN CM updated that patient qualifies for home oxygen at discharge. RN CM received script for home oxygen. Referral sent to [facility], patient preferred DME, and arranged for delivery to patient's room prior to discharge.
--- NOTE | 2020-01-26 15:31 | PCM.DC ---
- Discharge Diagnoses Current Active Problems: Current Active and Chronic Problems COVID-19 (Acute) You will use the following diet at home:: No restrictions Your food should be the consistency of: Regular Your liquids should be the consistency of: Regular/Thin Discharge Activity: Return to Normal Activity Weight Bearing Status: Full weight bearing Additional Instructions: USE 2 LITERS OF OXYGEN WHEN AMBULATING Allergies/Adverse Reactions: Allergies No Known Allergies Allergy (Verified 01/19/20 23:32) Medications to take at Discharge Albuterol IH (ProAir) [Proair Hfa (SP)Vent Pts] 2 puff INHALATION UD #1 inhaler 01/26/20 Guaifenesin Dm [Robitussin Dm] 10 ml PO Q4H PRN PRN udc 01/26/20 The following prescriptions were given: Albuterol IH (ProAir) [Proair Hfa (SP)Vent Pts] 2 puff INHALATION UD #1 inhaler Transmission Status: Pending to [facility] Primary Care Physician: Joselin Saenz MD [Primary Care Provider] - Please follow up with your Primary Care Physician in: [place] 7-10 DAYS Test Results: Test results from this visit will be discussed in further detail at your follow-up appointment, if applicable.
--- NOTE | 2020-01-26 18:57 | DS.PCM_ITS ---
Discharge Date and Diagnosis Date of Admission: 01/20/20 Date of Discharge: 01/26/20 - Primary Discharge Diagnosis Acute Problems: 1 acute COVID-19 infection with pneumonia from COVID-19 #2 hypoxia secondary to #1 Hospital Course and Treatment Operations: None Procedures: None Summary of Care Provided: The patient is a 49 year old M was seen in the emergency room at [facility] with chief complaint of shortness of breath, Annette patient complained of generalized malaise starting 7 days prior to being seen in the emergency room, he complained of shortness of breath starting 3 days before he was seen in the emergency room. Patient was tested at home with his family for COVID-19 but these results were not available yet. Patient underwent COVID testing in the emergency room, this was positive, chest x-ray was obtained which showed subtle bilateral midlung and right basilar opacities. Patient's d-dimer was elevated and a CTA was performed which showed focal bilateral pneumonia. Patient was hypoxic on room air and was placed on supplemental oxygen. Patient's O2 sat on room air in the emergency room was 84% at times. Patient was admitted to [facility] on [facility] 2 ICU, he was seen in consultation by infectious diseases, he was placed on Decadron and Remdisivir. Patient underwent a protracted course in the hospital and required supplemental oxygen- never above 4 L however. The day before his eventual discharge, patient was placed on aerosol treatments which seem to help the patient's oxygenation. On 01/26/2020, patient was seen and examined: On examination he appeared in good health and spirits. Vital signs as documented. Skin warm and dry and without overt rashes. Neck without JVD, neck was supple, trachea midline, thyroid was normal. Lungs clear bilaterally, normal air movement was noted. Heart exam notable for regular rhythm, normal sounds and absence of murmurs, rubs or gallops. Abdomen unremarkable and without evidence of organomegaly, masses, or abdominal aortic enlargement. Bowel sounds are present, abdomen is not distended. Extremities nonedematous, no cyanosis was noted, no clubbing was noted. Neuro: Cranial nerves II through XII are grossly intact, no focal motor deficits were noted, sensation to light touch and pinprick intact, motor exam 5/5 throughout. Psych: Patient is alert and oriented x3, he does not appear anxious or depressed, he does not appear agitated. On 01/26/2020, patient was seen and examined and felt to be stable for discharge home. Patient required a prescription for supplemental oxygen due to the fact his O2 sat on room air ambulating was 87%, he ambulated with 2 L of oxygen and his O2 sat was 92%. At rest, the patient's O2 sat was 94% on room air. Patient was set up for oxygen at 2 L/min while ambulating, he was expected to use this oxygen in his home and outside of his home on ambulation. - Physical Exam Vitals/I&O's: Vital Signs Temp Pulse Resp BP Pulse Ox 98.6 F 92 17 125/80 H 94 01/26/20 15:30 01/26/20 15:30 01/26/20 15:30 01/26/20 15:30 01/26/20 15:30 Oxygen Flow Rate (L/min) [ 2 AMBULATION with Oxygen] Oxygen Flow Rate (L/min) 1 Oxygen Delivery Method Nasal Cannula Weight: 94.801 kg Body Mass Index (BMI) 32.7 Intake and Output for Last 24 Hours 01/24/20 01/25/20 01/26/20 23:59 23:59 23:59 Intake Total 2860 / 3180 1740 / 1740 Output Total 1525 / 1975 2024 625 / 625 Balance 1335 / 1205 -285 / -285 -625 / -625 Discharge Activity: Return to Normal Activity Weight Bearing Status: Full weight bearing Home Medications: Medications to take at Discharge Albuterol IH (ProAir) [Proair Hfa (SP)Vent Pts] 2 puff INHALATION UD #1 inhaler 01/26/20 Guaifenesin Dm [Robitussin Dm] 10 ml PO Q4H PRN PRN udc 01/26/20 Following Prescriptions Were Given to Patient: Albuterol IH (ProAir) [Proair Hfa (SP)Vent Pts] 2 puff INHALATION UD #1 inhaler Transmission Status: Received by [facility] Primary Care Physician: Joselin Saenz MD [Primary Care Provider] - Please follow up with your Primary Care Physician in: [place] 7-10 DAYS Disposition: Home Minutes spent on discharge:: 32 Patient Condition:: Stable Medical Necessity - Tobacco Use Smoking Status: Never smoker Tobacco Use: Non-smoker Meaningful Use Info Meaningful Use Diagnoses (Choose all that apply): None applicable Inpatient E&M: [id number] Disch Hosp
== END 2020-01-26 18:00 | disposition home or self-care (01) | DRG 177 ==
LOC: ED 01-20 01:18 → ICU 01-20 03:08
PROVIDERS: Internal Medicine Infectious Disease; Admitting Provider Family Medicine; Emergency Provider Student in an Organized Health Care Education/Training Program; PCP Internal Medicine Infectious Disease; Visit Provider Internal Medicine
DX: U07.1 COVID-19 (principal); J12.89 Other viral pneumonia; R09.02 Hypoxemia
CPT/HCPCS: 71045; 71275; 80048; 80053; 80076; 84145; 84484; 85025; 85027; 85379; 86900; 86901; 87635; 93005; 94640; 97110; 97162; 97166; 97530; 97802; 99251; 99285; J7050; Q9967; A4216; G0463; U0003

== ENCOUNTER → 2020-02-17 06:43 | Outpatient (CLI) | payer SELFPAY ==
[2020-01-20 03:43] VITALS: BMI 32.7
--- NOTE | 2020-02-17 06:47 | RAD_ITS ---
STUDY: X-RAY CHEST REASON FOR EXAM: Male, 49 years old. HYPOXIA/COVID RECOVERY TECHNIQUE: PA and lateral views of the chest. COMPARISON: 01/25/2020 FINDINGS: The lungs are clear and expanded. There is no demonstrated pleural abnormality. Normal size heart. Normal mediastinum and joe. Normal visualized pulmonary arteries. Normal visualized aortic arch and descending thoracic aorta. Normal visualized thoracic spine. Normal visualized ribs, clavicles, and shoulders. There is no demonstrated abnormality of the visualized soft tissue structures of the upper abdomen. RAD/Chest PA and Lateral IMPRESSION: Normal x-ray examination of the chest. Electronically Signed: Tyler Chauhan MD at 16:48 EDT Tel , Service support ,
--- NOTE | 2020-02-18 10:25 | PFT ---
INTRODUCTION: The patient is a 49-year-old male that presents for pulmonary function studies secondary to a diagnosis of pneumonia. Respiratory therapy reports good patient effort. Bronchodilators were used during testing. INTERPRETATION: Forced expiration spirometry demonstrates no evidence of a large airways obstructive ventilatory defect. There was no significant response to aerosolized bronchodilators. Spirograms are of good quality and plateau normally. Body plethysmography was performed and reveals a decreased TLC to 4.2 L, 69% of predicted, indicative of a moderate restrictive ventilatory impairment. Diffusing capacity by single breath CO is also reduced at 59% of predicted. IMPRESSION: Moderate restrictive ventilatory impairment with symmetric reduction in diffusing capacity.
== END ==
PROVIDERS: PCP Nurse Practitioner Family; Referring Provider Nurse Practitioner Family; Visit Provider Nurse Practitioner Family
DX: J18.9 Pneumonia, unspecified organism (principal); U07.1 COVID-19; Z99.81 Dependence on supplemental oxygen; R09.02 Hypoxemia
CPT/HCPCS: 71046; 94060; 94726; 94729

== ENCOUNTER 2021-01-28 22:54 | Observation (INO) | payer SELFPAY ==
[2021-01-28 22:55] VITALS: BP 157/98; PULSE 77; RESP 16; TEMP 36.1; O2SAT 98; BMI 34.4
--- NOTE | 2021-01-28 22:59 | EKG12_ITS ---
Test Reason : CP Blood Pressure : / mmHG Vent. Rate : 076 BPM Atrial Rate : 076 BPM P-R Int : 168 ms QRS Dur : 088 ms QT Int : 376 ms P-R-T Axes : 029 -07 026 degrees QTc Int : 423 ms Normal sinus rhythm Normal ECG Confirmed by NILSON CASTILLO MD ([id number]), graphic editor OCTAVIA BONNER ([id number]) on 01/30/2021 7:38:18 AM Referred By: GUNJAN Confirmed By:NILSON CASTILLO MD
[2021-01-28 23:00] VITALS: PULSE 85; RESP 19; O2SAT 98
[2021-01-28] MEDS: Aspirin 81 MG TAB.CHEW 324 MG PO (23:07)
--- NOTE | 2021-01-28 23:07 | EDS_ITS ---
HPI History of Present Illness Chief Complaint: Chest Pain Informant: patient Onset/Context/Timing Onset: Today Activity at onset: gradual Timing: Intermittent Quality: Positive for Aching Location: Left Parasternal Current Severity: Gone Maximum Severity: Mild Worsened By: Nothing Relieved By: Nothing Associated Symptoms: Positive for Nausea, Dyspnea and Lightheadedness; Negative for Vomiting, Diaphoresis, Cough, Fever, Acid Reflux and Palpitations Narrative Narrative: 50-year-old male past medical history of sleep apnea. States last 24 hours she is an intermittent left parasternal chest pain. Associated with nausea and lightheadedness. Currently he is symptom-free. He has never had a heart cath or stress test. He had similar pain about a year ago and never had it evaluated. He has no known history of cardiac disease. He is not treated for hypertension or high cholesterol. No immediate family members brother sisters or parents had any significant cardiac disease. He is never had a DVT or PE. Has had no recent travel surgery or immobilization. No hemoptysis. No leg pain or swelling. The discomfort is not pleuritic. Prior Similar Symptoms: Yes Recent Illness/Hospitalization: No CVD Risk Factors: Negative for Hypertension, Diabetes, Hypercholesterolemia, Family History 1' </=55 and Smoking PE Risk Factors: Negative for Recent Travel/Surgery, Recent Immobilization, Prior DVT or PE, Cancer and OCP + Smoking + >/=35 TAD Risk Factors: Negative for Marfan's Syndrome and Hypertension [facility] Medical History BiPAP (biphasic positive airway pressure) dependence Hypertension Sleep apnea Home Medications aspirin 81 mg PO DAILY 01/28/21 [History Last Taken Unknown] Allergy/AdvReac Type Severity Reaction Status Date / Time No Known Allergies Allergy Verified 01/28/21 22:55 Surgical History History of appendectomy Social History Smoking Status: Never smoker ROS ROS ED ROS Narrative Chest pain otherwise negative. Review of Systems ROS Unobtainable: Denies due to encephalopathy Constitutional Constitutional ED: Denies fever(s) Eyes Eyes: Denies none or change in vision ENT ENT ED: Denies ear pain or sore throat Cardiovascular Cardiovascular: Reports as per HPI and chest pain; Denies palpitations Respiratory/Chest Respiratory/Chest: Reports dyspnea; Denies cough Gastrointestinal Gastrointestinal: Reports nausea; Denies abdominal pain, diarrhea or vomiting Genitourinary Genitourinary ED: Denies dysuria Musculoskeletal Musculoskeletal: Denies myalgias Integumentary Denies rash Neurologic Neurologic: Denies headache(s) Psychiatric Psychiatric: Denies depression Endocrine Endocrinology: Denies polyuria Hematologic/Lymphatic Hematologic/Lymphatic: Denies easy bruising Allergic/Immunologic Allergic/Immunologic ED: Denies urticaria EXAM Physical Exam Narrative Exam Narrative: 30-year-old male no acute distress initial blood pressure 157/98. Afebrile. Pulse ox 90% on room air no signs hypoxia. Exam normal. Lungs are clear equal symmetrical bilaterally. Heart regular rate and rhythm no murmur. Chest were nontender. Abdomen soft nontender. Extremities moves all 4. Calves nontender no edema. Equal symmetric radial pulses. Neurologic exam normal. Const Vital Signs: 01/28/21 22:55 01/28/21 22:59 01/28/21 23:00 Temperature 96.9 F L Temperature Source Temporal Pulse Rate 77 85 Respiratory Rate 16 19 H Respiratory Effort Normal Respiratory Pattern Normal Blood Pressure 157/98 H Blood Pressure Mean 117 Pulse Ox 98 98 Oxygen Delivery Method Room Air Room Air Positive well nourished and well developed; Negative for cachectic, contractures or unkempt General Appearance ED: well developed and NAD; Negative for unkempt, cachectic or contractures Nutritional Appearance: Negative for cachectic HEENT Reports moist mucous membranes normocephalic and atraumatic Eyes PERRL and EOMs intact bilaterally Neck no lymphadenopathy, supple and no JVD General: Negative for tenderness Chest Wall inspection of chest normal and palpation of chest normal Resp normal respiratory effort and clear to auscultation bilaterally Effort and Inspection: respiratory distress Auscultation: Negative for rales, rhonchi or wheezes Cardio regular rate, regular rhythm, S1 normal heart sound, S2 normal heart sound and no murmurs Rate: Negative for bradycardia or tachycardic GI normal to inspection, nondistended, normoactive bowel sounds, soft to palpation, non-tender, non-distended and no masses Back/Spine no CVA tenderness Extremity normal to inspection General Extremety ED: Negative for edema, pulses abnormal or tenderness General Extremity: Negative for edema or pulses abnormal Neuro oriented x3 Sensorium / Orientation: awake, alert, oriented to person, oriented to place and oriented to time Motor Exam: strength 5/5 throughout Psych mental status grossly normal Appearance: Negative for unkempt Mood & Affect: Negative for depressed Skin no rashes or lesions noted and no wounds Heart Score History: Moderately Suspicious ECG: Normal Age: >45 - <65 years Risk Factors: 1 or 2 Risk Factors Troponin: </= Normal Limit Score: 3 MDM MDM MDM Narrative Medical decision making narrative: 50-year-old male with mid sternal to left- sided chest pain that radiates to his left arm. No prior cardiac cath and stress test. Exam normal. His risk factors would be his age pain might be musculoskeletal and he is mildly overweight. 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 Pain is not reproducible. No undergo cardiac work-up. I do think the patient would benefit from observation admission and stress testing. Repeat exam patient is doing well at 11:50 PM. He is symptom-free and pain- free. We went over all his test results. We discussed different treatment options I will speak to the hospitalist about admission for provocative cardiac testing on Friday. Lab Data Attestation: I reviewed the patient's lab results. Lab results narrative: CBC normal white count of 6. Hemoglobin of 14.9. Electrolytes unremarkable gap is 7 normal creatinine. Glucose 107 troponin normal at 6. Chest x-ray unremarkable. Labs: Laboratory Results - last 24 hr 01/28/21 01/28/21 23:04 23:04 WBC 6.7 RBC 5.10 Hgb 14.9 Hct 43.2 MCV 84.7 MCH 29.2 MCHC 34.5 RDW Std Deviation 38.9 RDW Coeff of Doug 12.6 Plt Count 283 MPV 8.9 Immature Gran % (Auto) 0.900 Neut % (Auto) 53.5 Lymph % (Auto) 34.3 Brule % (Auto) 9.7 Eos % (Auto) 1.3 Baso % (Auto) 0.3 Absolute Neuts (auto) 3.6 Absolute Lymphs (auto) 2.30 Nucleated RBC % 0 Sodium 138 Potassium 3.8 Chloride 105 Carbon Dioxide 26.0 Anion Gap 7 BUN 18 Creatinine 0.89 Estim Creat Clear Calc 92.84 Est GFR (MDRD) Af Amer 117 Est GFR (MDRD) Non-Af 96 BUN/Creatinine Ratio 20.2 H Glucose 107 H Calcium 9.6 Troponin I High Sens 6 Radiography Chest X-Ray - ED: 1 View, Read by Radiologist, Normal, Heart, Lungs, Mediastinum, Bony Structures and No Acute Disease Diagnostic Testing: Radiology Impression Chest X-Ray 01/28/21 23:13 IMPRESSION: Normal x-ray examination of the chest. Electronically Signed: Hoang Shukla DO at 23:32 EDT Tel , Service support , Single view chest x-ray portable interpreted both by myself and the radiologist shows no acute abnormality. Normal cardiac silhouette and mediastinum. Normal lungs. Rhythm Strip Rhythm Strip: Sinus Rhythm Rate: 76 Ectopy: None EKG Initial EKG: Attestation: I personally reviewed and interpreted this EKG as follows: Interpretation: Sinus Rhythm and No Acute Injury Pattern Comments: Normal sinus rhythm rate is 76 no acute signs of KS nor ischemia. Unchanged from prior EKG from December of last year. Prior EKG tracings: available for review Prior: Unchanged Discharge Plan Triage Chief Complaint: Chest Pain ED Provider: Marco Gipson Dx/Rx/DC Orders Clinical Impression: Chest pain Prescriptions: No Action aspirin 81 mg Tablet,Chewable 81 mg PO DAILY RF: 0 Primary Care Provider: Tyler Kessler NP Referrals: Tyler Kessler FOREMAN/PROJECT MANAGER, FOREMAN/PROJECT MANAGER-C [Primary Care Provider] - Disposition Disposition: Acute Care [facility]
--- NOTE | 2021-01-28 23:13 | RAD_ITS ---
STUDY: X-RAY CHEST REASON FOR EXAM: Male, 50 years old. chest pain TECHNIQUE: Single AP portable view of the chest. COMPARISON: 02/17/2020 FINDINGS: The lungs are clear and expanded. There is no demonstrated pleural abnormality. Normal size heart. Normal mediastinum and joe. Normal visualized pulmonary arteries. Normal visualized aortic arch and descending thoracic aorta. Normal visualized thoracic spine. Normal visualized ribs, clavicles, and shoulders. There is no demonstrated abnormality of the visualized soft tissue structures of the upper abdomen. RAD/Chest 1 View (Portable) IMPRESSION: Normal x-ray examination of the chest. Electronically Signed: Hoang Shukla DO at 23:32 EDT Tel , Service support ,
[2021-01-28 23:24] LABS: Absolute Neutrophil Count 3.6 X10^3/uL (2.0-7.7); Basophil# 0.02 X10^3/uL; Basophil% 0.3 % (0-1); Eosinophil# 0.09 X10^3/uL; Eosinophils% 1.3 % (0-5); Hematocrit 43.2 % (40-54); Hemoglobin 14.9 g/dL (13.0-16.5); Lymphocyte % 34.3 % (19-41); Mean Corp Hgb Conc 34.5 g/dL (32-36); Mean Corpuscular Hgb 29.2 pg (27.0-32.0); Mean Corpuscular Volume 84.7 fL (80-94); Mean Platelet Vol. 8.9 fl (6.2-12.0); Monocyte# 0.65 X10^3/uL; Monocyte% 9.7 % (0-10); NRBC Flagged by Analyzer 0 % (0-5); Neutrophil # 3.59 X10^3/uL (2.7-7.7); Neutrophil % 53.5 % (47-70); Platelet Count 283 K/mm3 (150-450); RBC Distribution Width CV 12.6 % (11.6-14.6); RBC Distribution Width SD 38.9 fl (35.1-43.9); White Blood Count 6.7 K/mm3 (4.4-11.0)
[2021-01-28 23:25] LABS: POSITIVE COUNT NO; POSITIVE DIFFERENTIAL NO; POSITIVE MORPHOLOGY NO
[2021-01-28 23:49] LABS: Anion Gap 7 (5-15); BUN 18 mg/dL (7-18); BUN/Creat Ratio 20.2 RATIO (10-20); Calcium,Total 9.6 mg/dL (8.5-10.1); Chloride 105 mmol/L (98-107); Creatinine, Serum 0.89 mg/dL (0.70-1.30); EST Glomerular Filtration Rate 96 mL/min (>60); Est Glom Filt Rate - Afr Amer 117 mL/min (>60); Estimated Creatinine Clearance 92.84 ml/min; Glucose 107 mg/dL (74-106); Potassium 3.8 mmol/L (3.5-5.1); Sodium Level 138 mmol/L (136-145); Troponin-I HS 6 pg/mL (3.0-78.0)
[2021-01-28 23:52] VITALS: BP 125/79; PULSE 66; RESP 16; O2SAT 96
[2021-01-29] VITALS (8 sets, daily range): BP systolic 108–147; BP diastolic 71–97; PULSE 60–71; RESP 16–18; TEMP 36.4–36.8; O2SAT 94–100; BMI 33.8
--- NOTE | 2021-01-29 00:10 | HP.PCM.HOS_ITS ---
HPI - General General Date of Admission: 01/29/21 HPI Narrative PINEDA SHELLEY, is a 50 M with a significant history of obstructive sleep apnea who presents to the emergency department with moderately intense left sided chest pain that started a day before presentation and persisted. His chest pain wax and wane. It never completely left. He described the chest pain as dull aching. The chest pain radiated to his left arm and to his upper back. He denies any ameliorating or aggravating factors to the chest pain. At the time of evaluation he had very mild chest pain. Associated with his symptom is weakness; lightheadedness; nausea without vomiting; and presyncope. He had more intense form of chest pain in July 2020. REPLACED BY [facility] Medical History BiPAP (biphasic positive airway pressure) dependence Hypertension Sleep apnea Home Medications aspirin 81 mg PO DAILY 01/28/21 [History Last Taken Unknown] Allergy/AdvReac Type Severity Reaction Status Date / Time No Known Allergies Allergy Verified 01/28/21 22:55 Family History Other Cancer Heart disease Surgical History History of appendectomy Social History Smoking Status: Never smoker ROS ROS Narrative Constitutional: Denies fever, chills, fatigue, anorexia and change in weight Eyes: Denies blurry vision, change in eye color, change in vision, discharge from eye(s), double vision, erythema, eye pain, loss of vision or other HEENT: Denies abnormal hearing, dysphagia, ear pain, epistaxis, headache(s), hearing loss, nasal congestion, nasal discharge, post nasal drip, sinus pressure, sore throat or other Cardiovascular:Reports chest pain. Denies palpitations. Denies dyspnea on exertion, orthopnea and paroxysmal nocturnal dyspnea Respiratory/Chest: Denies cough, excessive phlegm production, shortness of breath with exertion and wheezing Gastrointestinal: Reports nausea without vomiting. Denies abdominal pain, coffee ground emesis, constipation, diarrhea, dyspepsia, hematemesis, hematochezia, loose stools, melena, or other Genitourinary: Denies burning urination, difficulty urinating, dysuria, hematuri a, nocturia, urinary frequency, urinary hesitancy, urinary incontinence, urinary urgency or other Musculoskeletal: Denies arthralgias, back pain, joint pain, joint stiffness, joint swelling, myalgias, neck pain or other Neurologic: Denies abnormal gait, abnormal speech, confusion, disequilibrium, dizziness, focal weakness, headache(s), numbness, paresthesias, seizure-like activity, seizures, syncope, tingling, tremor(s) or other Psychiatric: Denies anxiety, depression, homicidal ideation, suicidal ideation or other Endocrinology: Denies change in body appearance, cold intolerance, excessive sweating, heat intolerance, polydipsia, polyuria or other Hematologic/Lymphatic: Denies anemia, easy bleeding, easy bruising, lymphadenopathy or other Integumentary: Denies rashes Allergic/Immunologic: Denies rhinitis, hives, eczema, asthma or other Vital Signs Vital Signs Vital Signs: 01/28/21 22:55 01/28/21 22:59 01/28/21 23:00 Temperature 96.9 F L Temperature Source Temporal Pulse Rate 77 85 Respiratory Rate 16 19 H Respiratory Effort Normal Respiratory Pattern Normal Blood Pressure 157/98 H Blood Pressure Mean 117 Pulse Ox 98 98 Oxygen Delivery Method Room Air Room Air 01/28/21 23:52 Temperature Temperature Source Pulse Rate 66 Respiratory Rate 16 Respiratory Effort Respiratory Pattern Blood Pressure 125/79 H Blood Pressure Mean 94 Pulse Ox 96 Oxygen Delivery Method Room Air Weight Weight: 99.6 kg Body Mass Index (BMI) 34.4 Physical Exam Narrative Physical exam: General: Well-nourished, well-developed. Head: Normocephalic, atraumatic, no tenderness Eyes: PERRLA, EOMI ENT, no trauma, moist mucous membranes, no rhinorrhea Neck: Nontender, full range of motion, no spinal tenderness, deformities, step- off CVS: Regular rate and rhythm. S1-S2 present. No murmur, gallop or rub. Respiratory : clear to auscultation bilaterally, chest wall nontender, no wheezing Abdomen: Soft, nontender, nondistended, normal bowel sounds, no masses : Deferred Back: Nontender, no CVA tenderness, no midline spinal tenderness, deformities, step-offs Extremities: Nontender full range of motion, no trauma Skin: Normal color, no trauma, abrasions Neuro: Alert, oriented, cranial nerves II through XII grossly intact. Psychiatry: Normal mood. Normal affect. Not depressed. Not anxious. Results Lab / Micro Data Result Diagrams: 01/28/21 23:04 01/28/21 23:04 Labs: Laboratory Results - last 24 hr 01/28/21 23:04: WBC 6.7, RBC 5.10, Hgb 14.9, Hct 43.2, MCV 84.7, MCH 29.2, MCHC 34.5, RDW Std Deviation 38.9, RDW Coeff of Doug 12.6, Plt Count 283, MPV 8.9, Immature Gran % (Auto) 0.900, Neut % (Auto) 53.5, Lymph % (Auto) 34.3, [place] % (Auto) 9.7, Eos % (Auto) 1.3, Baso % (Auto) 0.3, Absolute Neuts (auto) 3.6, Absolute Lymphs (auto) 2.30, Nucleated RBC % 0 01/28/21 23:04: Sodium 138, Potassium 3.8, Chloride 105, Carbon Dioxide 26.0, Anion Gap 7, BUN 18, Creatinine 0.89, Estim Creat Clear Calc 92.84, Est GFR (MDRD) Af Amer 117, Est GFR (MDRD) Non-Af 96, BUN/Creatinine Ratio 20.2 H, Glucose 107 H, Calcium 9.6, Troponin I High Sens 6 Rhythm Strip Rhythm Strip: Sinus Rhythm Rate: 76 Ectopy: None Radiology Impression Chest X-Ray 01/28/21 23:13 IMPRESSION: Normal x-ray examination of the chest. Electronically Signed: Hoang Suhkla DO at 23:32 EDT Tel , Service support , Assessment & Plan Assessment/Plan (1) Chest pain: QUALIFIERS: Chest pain type: unspecified Qualified Code(s): R07.9 - Chest pain, unspecified PLAN: Chest Pain Place on a monitored bed at the PCU Actual CXR image was independently visualized. No acute cardiopulmonary process was noted. Actual EKG tracing was independently visualized. EKG tracing showed sinus rhythm Received ASA 325mg at the ED. ASA 81 mg p.o. daily continued SL NTG 0.4 mg prn as needed for chest pain ordered We will check lipid panel. Initial high sensitive troponin was unremarkable Serial cardiac enzymes ordered Stat EKG as needed for chest pain Stress test in the AM if the cardiac enzymes are negative/stable Obstructive sleep apnea Home CPAP continued. DVT prophylaxis: SCD ordered Charges/Coding Visit Charges OBSV E&M: 67288 Initial observation care L2
--- NOTE | 2021-01-29 01:12 | PCS.PANDOC ---
PANDEMIC DOCUMENTATION INITIATED: Date: 12/11/2020 Time: 190
--- NOTE | 2021-01-29 01:13 | EKG12_ITS ---
Test Reason : CP ADMIT Blood Pressure : / mmHG Vent. Rate : 061 BPM Atrial Rate : 061 BPM P-R Int : 182 ms QRS Dur : 090 ms QT Int : 410 ms P-R-T Axes : 030 -03 011 degrees QTc Int : 412 ms Normal sinus rhythm Normal ECG When compared with ECG of 20-JAN-2020 00:48, No significant change was found Confirmed by ANNA HILTON, NILSON ([id number]), editor greeting card OCTAVIA BONNER ([id number]) on 01/29/2021 12:54:42 PM Referred By: REZA Confirmed By:NILSON CASTILLO MD
[2021-01-29 01:56] LABS: Troponin-I HS 6 pg/mL (3.0-78.0)
[2021-01-29] MEDS: Aspirin 81 MG TAB.CHEW PO (05:46)
--- NOTE | 2021-01-29 06:25 | STEWCON_ITS ---
Reason For Study: Chest Pain Stress Results Protocol: Vinod Protocol WITH DEFINITY Maximum Predicted HR: 170 bpm Target HR: 145 bpm % Maximum Predicted HR: 91 % DurationHeart Rate Stage (mm:ss) (bpm) BP Comment Baseline 63 130/84No Chest Pain; 5 ML Diluted Definity Vinod Protocol Stage I 3:00 95 138/78No Chest Pain Vinod Protocol Stage II 3:00 108 150/72No Chest Pain Vinod Protocol Stage III 3:00 134 164/72No Chest Pain; Mild Dyspnea Vinod Protocol Stage IV 1:15 155 / No Chest Pain; Mild Dyspnea Recovery 90 126/80No Chest Pain Stress Duration: 10:15 mm:ss Maximum Stress HR: 155 bpm METS: 13 Baseline Echocardiogram Findings Stress Echo Wall motion Data Resting WM Intermediate WM Stress WM ECHO/Stress Test Echo W/Contrast Interpretation Summary Exercise stress echocardiogram. Stress protocol: Resting EKG demonstrates normal sinus rhythm with a rate of 62 bpm normal inter vals are noted resting blood pressure is 130/84 mmHg. The patient exercised according to regul ar Vinod protocol for total duration of 10 minutes and 15 seconds completing 1 minute and 15 seconds into stage IV of the Vinod protocol. The maximum heart rate attained was 155 bpm which was 91% of ma ximum predicted heart rate the maximum workload was 13.4 metabolic equivalents. At rest there were no ST or T wave changes noted to suggest ischemia and at peak exercise upsloping ST changes were noted with did not meet the criteria for ischemia. The test was terminated due to the target heart rate luanne ng achieved. The peak blood pressure was 164/72 which was a normal blood pressure response to exercis e. Stress echocardiogram. Resting and stress echocardiographic images were obtained with Trivop enhance ment. The resting ejection fraction was estimated to be approximately 50%. At peak exercise there was thickening of all briseno and reduction of low ventricular cavity size with ejection fraction p eaking at 65%. No wall motion abnormalities were noted to suggest ischemia. Conclusion: Normal stress echocardiogram with no evidence of ischemia at a high workload. Excellent functional aerobic capacity. Ordering Physician: Dariusz Harris Referring Physician: Demond Craft Performed By: Bethany Pelayo, RYAN, RVT
[2021-01-29 07:28] LABS: Cholesterol 172 mg/dL (200); High Density Lipoprotein 33 mg/dL; Triglycerides 169 mg/dL; Troponin-I HS 7 pg/mL (3.0-78.0); Very Low Density Lipoprotein 34 mg/dL (5-40)
--- NOTE | 2021-01-29 11:42 | PCM.DC.SUM ---
Providers Date of Admission: 01/29/21 Primary Care Physician: Tyler Kessler, [employer] Reason For Visit: CHEST PAIN Diagnosis Discharge Diagnosis (1) Chest pain: Status: Acute Code(s): R07.9 - Chest pain, unspecified Qualifiers: Chest pain type: unspecified Qualified Code(s): R07.9 - Chest pain, unspecified Medications at Discharge Home Medications aspirin 81 mg PO DAILY 01/28/21 Hospital Course Operations None Procedures Stress test Summary of Care Provided Minutes Spent on Discharge: 35 Hospital Course: Patient is a 50-year-old male with a past medical history as outlined was admitted to the ED in the early hours of 01/29/2021 with a complaint of left-sided chest pain which started the day before admission and persisted. It waxed and waned and was described as dull and aching and radiated to his left arm and upper back. He had no aggravating or relieving factors and had associated nausea and lightheadedness. He had had similar symptoms back in July 2020. Troponins x3 were negative and he was admitted and managed for chest pain rule out ACS. He had a stress echo on 01/29/2021 which was negative. Patient remained stable and chest pain resolved. He was discharged home on 01/29/2021 and is to follow-up with his primary care doctor in 1 to 2 weeks. Patient seen and examined prior to discharge. He had no complaints and felt well. Review of symptoms otherwise negative. Labs and vitals reviewed. Home medication reviewed and reconciled. Physical Exam Const alert, oriented x3 and no apparent distress General Appearance: cooperative, comfortable and well kempt Orientation / Consciousness: awake Exam Limitations: no limitations HEENT normocephalic, head/scalp atraumatic, hearing grossly normal bilaterally and moist oral mucous membranes Eyes PERRL, EOMs intact bilaterally and conjunctivae normal Neck no lymphadenopathy Resp normal respiratory effort, no retractions, no use of accessory muscles and clear to auscultation bilaterally Cardio regular rate, regular rhythm, S1 normal heart sound, S2 normal heart sound and no murmurs GI normal to inspection, nondistended, normoactive bowel sounds, soft to palpation, non-tender and non-distended Extremity normal to inspection, full ROM and no clubbing, cyanosis or edema Skin no rashes or lesions noted Neuro oriented x3 and CN's II-XII intact bilaterally Sensorium / Orientation: awake and alert Psych affect normal Weight / BMI Weight Weight: 216 lb 0.848 oz Body Mass Index (BMI) 33.8 ABG / Lab / Microbiology Data Result Diagrams: 01/28/21 23:04 01/28/21 23:04 Laboratory: Laboratory Results - last 24 hr 01/28/21 23:04: WBC 6.7, RBC 5.10, Hgb 14.9, Hct 43.2, MCV 84.7, MCH 29.2, MCHC 34.5, RDW Std Deviation 38.9, RDW Coeff of Doug 12.6, Plt Count 283, MPV 8.9, Immature Gran % (Auto) 0.900, Neut % (Auto) 53.5, Lymph % (Auto) 34.3, [place] % (Auto) 9.7, Eos % (Auto) 1.3, Baso % (Auto) 0.3, Absolute Neuts (auto) 3.6, Absolute Lymphs (auto) 2.30, Nucleated RBC % 0 01/28/21 23:04: Sodium 138, Potassium 3.8, Chloride 105, Carbon Dioxide 26.0, Anion Gap 7, BUN 18, Creatinine 0.89, Estim Creat Clear Calc 92.84, Est GFR (MDRD) Af Amer 117, Est GFR (MDRD) Non-Af 96, BUN/Creatinine Ratio 20.2 H, Glucose 107 H, Calcium 9.6, Troponin I High Sens 6 01/29/21 01:27: Troponin I High Sens 6 01/29/21 05:50: Troponin I High Sens 7, Triglycerides 169, Cholesterol 172, LDL Cholesterol 105, VLDL Cholesterol 34, HDL Cholesterol 33 L Radiography Diagnostic Testing: Radiology Impression Chest X-Ray 01/28/21 23:13 IMPRESSION: Normal x-ray examination of the chest. Electronically Signed: Hoang Shukla DO at 23:32 EDT Tel , Service support , Stress Echocardiogram 01/29/21 06:25 Interpretation Summary Exercise stress echocardiogram. Stress protocol: Resting EKG demonstrates normal sinus rhythm with a rate of 62 bpm normal intervals are noted resting blood pressure is 130/84 mmHg. The patient exercised according to regular Vinod protocol for total duration of 10 minutes and 15 seconds completing 1 minute and 15 seconds into stage IV of the Vinod protocol. The maximum heart rate attained was 155 bpm which was 91% of maximum predicted heart rate the maximum workload was 13.4 metabolic equivalents. At rest there were no ST or T wave changes noted to suggest ischemia and at peak exercise upsloping ST changes were noted with did not meet the criteria for ischemia. The test was terminated due to the target heart rate being achieved. The peak blood pressure was 164/72 which was a normal blood pressure response to exercise. Stress echocardiogram. Resting and stress echocardiographic images were obtained with Definity enhancement. The resting ejection fraction was estimated to be approximately 50%. At peak exercise there was thickening of all briseno and reduction of low ventricular cavity size with ejection fraction peaking at 65%. No wall motion abnormalities were noted to suggest ischemia. Conclusion: Normal stress echocardiogram with no evidence of ischemia at a high workload. Excellent functional aerobic capacity. Ordering Physician: Dariusz Harris Referring Physician: Demond Craft Performed By: Bethany Pelayo, RYAN, RVT D/C Instructions Discharge Diet: Low fat / Low cholesterol Discharge Activity: Return to Normal Activity Weight Bearing Status: Weight bearing as tolerated Call your doctor if you observe: Fever of 101 or Higher, Shortness of breath, Dizziness, Swelling in the ankles and Chest pain Meaningful Use Info Meaningful Use Diagnoses (Choose all that apply): None applicable Discharge Plan Admission Admit Date/Time: 01/29/21 00:06 Primary Reason for Your Visit: chest pain Attending Provider: So Santillan Primary Care Provider: Tyler Kessler NP Discharge Orders/Prescriptions Prescriptions: Continued aspirin 81 mg Tablet,Chewable 81 mg PO DAILY RF: 0 Referrals / Follow Up: De Baca,Tyler Lonnie [employer], [employer] [Primary Care Provider] - Disposition Disposition (needs filled in before D/C Order can be placed): Home, Self Care Charges/Coding Visit Charges OBSV E&M: 63065 Observ/hosp same date L2
--- NOTE | 2021-01-29 11:49 | PHA.DC.MR ---
Pharmacy Service has performed discharge medication reconciliation for this patient. The patient's discharge medication list was reviewed for discrepancies and discrepancies were resolved. Home Medications aspirin 81 mg PO DAILY 01/28/21
== END 2021-01-29 11:46 | disposition home or self-care (01) ==
LOC: ED 23:55 → PCU 01-29 00:44
PROVIDERS: Admitting Provider Hospitalist; Emergency Provider Emergency Medicine; PCP Nurse Practitioner Family; Visit Provider Student in an Organized Health Care Education/Training Program
DX: R07.89 Other chest pain (principal); R11.0 Nausea; R42 Dizziness and giddiness; R06.00 Dyspnea, unspecified; I10 Essential (primary) hypertension; G47.33 Obstructive sleep apnea (adult) (pediatric); Z79.82 Long term (current) use of aspirin
CPT/HCPCS: 36415; 71045; 80048; 80061; 84484; 85025; 93005; 93017; 93350; 99218; 99285; Q9957; A4216; C8928; G0378; J3490